=== PATIENT | male | born 1955 | race Caucasian/White ===

== ENCOUNTER → 2016-08-06 | Outpatient (CLI) | payer OTHER, MEDICARE ==
[~2016-08-06] MED LIST: ABIR1TAB; ALBU1AER9 INH; ASPI81TA28 PO; ATOR-26 PO; COEN1CAP7 PO; EZET10TA63 PO; LISI-461 PO; METO1TAB69 PO; PRED-301 PO; ROSU40TA PO; lupron IM
[2016-08-06 12:24] LABS: ESTIMATED AVERAGE GLUCOSE 226 mg/dl; HA1C FLAG Normal (Normal)
== END | disposition home or self-care (01) ==
LOC: C.LAB 17:58
PROVIDERS: ATTEND Internal Medicine Cardiovascular Disease
DX: R73.9 Hyperglycemia, unspecified (principal); C61 Malignant neoplasm of prostate; I10 Essential (primary) hypertension; E78.2 Mixed hyperlipidemia; I21.19 ST elevation (STEMI) myocardial infarction involving other coronary artery of inferior wall

== ENCOUNTER → 2016-09-11 | Outpatient (CLI) | payer OTHER, MEDICARE ==
[2015-09-13 13:55] VITALS: BP 113/71; PULSE 88
[~2016-09-11] MED LIST changes: +METO100T44 PO; -METO1TAB69 PO
[2016-09-11 13:47] VITALS: BP 122/72; PULSE 80; TEMP 36.6; O2SAT 93
--- NOTE | 2016-09-11 15:35 | Radiation Oncology Follow-Up ---
Radiation Oncology Follow-Up Date of Visit September 11, 2016. Reason For Visit 10 month follow-up Radiation Completion Date Implant 10/23/12, External 02/05/13 Diagnosis (1) Prostate cancer Status: Chronic Onset Date: 07/09/2012 Stage: IV Permanent Comment: Rising PSA pretreatment PSA 40 abnormal digital rectal exam Status post biopsies confirming adenocarcinoma [place] 4+3 Clinical stage TIIb, biopsy stage T2c/T3 Suspicious bone scan for metastasis biopsy negative Status post seed implant with cesium 131 on 10/23/2012. 48 seeds placed received 8500 cGy as a boost Status post IMRT/IGRT completed 02/05/2013 received 5040 cGy Ongoing hormonal suppression Lymph node progression on CT of the pelvis abnormal bone scan Abnormal bone scan On going treatment with Zytiga Last Edited By: Bonita Franklin on September 11, 2016 15:35 Interim History He was seen previously for evaluation for possible Xofigo. At that time he did not have 2 or more sites of symptomatic bony metastatic disease. He has been followed closely by Dr. Tate. He is on Zytiga and is having a good response with steady decrease in his PSA. He has not developed any new areas of bone pain. He is doing well from urinary status. His AUA was 7. Completed and expanded prostate cancer index composite for clinical practice and gave a score of 2 of 12 and urinary incontinence symptoms. He is score 1 of 12 urinary irritation symptoms. He gave a score of 0 of 12 in bowel symptoms. He gave a score of 11 of 12 in sexual symptoms. He gave a score of 0 12 and hormonal vitality symptoms. His total was 14 of 60. We reviewed his PSAs. In June 2016 the PSA was 0.48. 08/06/2016 PSA was 0.31. On 09/07/2016 the PSA was 0.020. Allergies Coded Allergies: No Known Allergies (Verified , 03/22/14) Home Medications Scheduled Abiraterone Acetate (Zytiga), 2 TABS DAILY Aspirin (Aspirin Ec), 81 MG PO DAILY Coenzyme Q10 (Ubidecarenone) (Coq10), 250 MG PO DAILY Ezetimibe (Zetia), 10 MG PO DAILY Lisinopril (Lisinopril), 10 MG PO DAILY Metoprolol Succ (Toprol Xl) (Toprol-Xl ), 50 MG PO BID Prednisone (Prednisone), 5 MG PO BID Rosuvastatin Calcium (Crestor), 1 TAB PO DAILY [lupron ], 45 MG IM q 6 months Scheduled PRN Albuterol (Proair Hfa), 1-2 PUFFS INH Q4H PRN Review of Systems Gastrointestinal: Symptoms: WNL Oral: Symptoms: No Problems Respiratory: Symptoms: WNL Urinary: Symptoms: Nocturia Comments: Nocturia x 3-4, Frequency, See AUA & EPIC Skin: Symptoms: No Problems Other Skin Symptoms: Dry skin on bilat forearms Physical Exam Vital Signs Date Time Temp Pulse Resp B/P Pulse Ox O2 Delivery O2 Flow Rate FiO2 09/11/16 13:47 36.6 80 16 122/72 93 Pain: Side: Bilateral Pain Location: None Patient Pain Scale: 0 - 10 Initial Pain Intensity: 0.0 Fatigue: None General Appearance: no apparent distress, + obese Eyes: normal inspection, EOMI ENT: normal ENT inspection, hearing grossly normal Neck: no adenopathy, thyroid normal Respiratory/Chest: lungs clear, no respiratory distress, no accessory muscle use Cardiovascular: regular rate, rhythm, no gallop, no murmur Abdomen: non tender, soft, no organomegaly Extremities: no pedal edema Neurologic/Psychiatric: no motor/sensory deficits, alert, normal mood/affect Skin: warm/dry Lymphatic: no adenopathy Additional Exam Notes: No areas of tenderness to palpation of his back. Laboratory Studies Test 08/06/16 08:54 08/06/16 08:56 09/07/16 07:58 White Blood Count 8.14 K/uL (4.8-10.8) 9.93 K/uL (4.8-10.8) Red Blood Count 4.24 M/uL (4.7-6.1) 4.05 M/uL (4.7-6.1) Hemoglobin 13.4 g/dL (14.0-18.0) 13.2 g/dL (14.0-18.0) Hematocrit 39.2 % (42-52) 39.4 % (42-52) Mean Corpuscular Volume 92.5 fL (80-100) 97.3 fL (80-100) Mean Corpuscular Hemoglobin 31.6 pg (25-34) 32.6 pg (25-34) Mean Corpuscular Hemoglobin Concent 34.2 g/dl (32-36) 33.5 g/dl (32-36) Platelet Count 252 K/uL (130-400) 257 K/uL (130-400) Mean Platelet Volume 9.5 fL (7.4-10.4) 9.1 fL (7.4-10.4) Neutrophils (%) (Auto) 67.8 % 68.4 % Lymphocytes (%) (Auto) 16.5 % 17.3 % Monocytes (%) (Auto) 13.0 % 11.5 % Eosinophils (%) (Auto) 1.8 % 2.0 % Basophils (%) (Auto) 0.4 % 0.4 % Neutrophils # (Auto) 5.52 K/uL (1.4-6.5) 6.79 K/uL (1.4-6.5) Lymphocytes # (Auto) 1.34 K/uL (1.2-3.4) 1.72 K/uL (1.2-3.4) Monocytes # (Auto) 1.06 K/uL (0.11-0.59) 1.14 K/uL (0.11-0.59) Eosinophils # (Auto) 0.15 K/uL (0-0.5) 0.20 K/uL (0-0.5) Basophils # (Auto) 0.03 K/uL (0-0.2) 0.04 K/uL (0-0.2) RDW Standard Deviation 49.2 fL (36.4-46.3) 49.0 fL (36.4-46.3) RDW Coefficient of Variation 14.5 % (11.5-14.5) 13.6 % (11.5-14.5) Immature Granulocyte % (Auto) 0.5 % 0.4 % Immature Granulocyte # (Auto) 0.04 K/uL (0.00-0.02) 0.04 K/uL (0.00-0.02) Sodium Level 139 mmol/L (136-145) 137 mmol/L (136-145) Potassium Level 4.1 mmol/L (3.5-5.1) 4.2 mmol/L (3.5-5.1) Chloride Level 105 mmol/L (98-107) 103 mmol/L (98-107) Carbon Dioxide Level 26 mmol/L (21-32) 25 mmol/L (21-32) Anion Gap 8.0 mmol/L (3-11) 9.0 mmol/L (3-11) Blood Urea Nitrogen 12 mg/dl (7-18) 16 mg/dl (7-18) Creatinine 0.67 mg/dl (0.60-1.40) 0.67 mg/dl (0.60-1.40) Est Creatinine Clear Calc Drug Dose 148.7 ml/min 148.7 ml/min Estimated GFR () 119.4 119.4 Estimated GFR (Non- 103.0 103.0 BUN/Creatinine Ratio 17.6 (10-20) 24.5 (10-20) Random Glucose 121 mg/dl (70-99) 130 mg/dl (70-99) Calcium Level 8.9 mg/dl (8.5-10.1) 9.1 mg/dl (8.5-10.1) Total Bilirubin 1.3 mg/dl (0.2-1) 1.3 mg/dl (0.2-1) Aspartate Amino Transferase (AST) 40 U/L (15-37) 40 U/L (15-37) Alanine Aminotransferase (ALT) 69 U/L (12-78) 64 U/L (12-78) Alkaline Phosphatase 90 U/L (45-117) 96 U/L (45-117) Lactate Dehydrogenase 287 U/L (87-241) 239 U/L (87-241) Total Protein 7.0 gm/dl (6.4-8.2) 6.8 gm/dl (6.4-8.2) Albumin 3.4 gm/dl (3.4-5.0) 3.3 gm/dl (3.4-5.0) Globulin 3.6 gm/dl (2.5-4.0) 3.5 gm/dl (2.5-4.0) Albumin/Globulin Ratio 0.9 (0.9-2) 0.9 (0.9-2) Prostate Specific Antigen 0.031 ng/ml (0.000-4.000) 0.020 ng/ml (0.000-4.000) Estimated Average Glucose 226 mg/dl Hemoglobin A1c 9.5 % (4.5-5.6) Additional Studies PSAs as reviewed above. Assessment & Plan Plan: Continue regular follow-up with oncology. He continues on Zytiga. He is on hormonal suppression. We asked him to return to our office in 1 year. He may be referred back to our office should he develop any areas of bone pain. He can call our office should he has any questions or concerns in the interim. Total Time In Follow-Up I spent 20 minutes speaking to the patient performing examination. I spent 15 minutes reviewing information and completing this note. Copy To Praful Taylor MD; Lc Tate, D.O.; Jelani Fuchs MD, Urology
== END | disposition home or self-care (01) ==
LOC: C.ONC 13:43
PROVIDERS: ATTEND Physician Assistant Medical
DX: Z08 Encounter for follow-up examination after completed treatment for malignant neoplasm (principal); Z92.3 Personal history of irradiation; Z85.46 Personal history of malignant neoplasm of prostate

== ENCOUNTER → 2016-12-07 | Outpatient (CLI) | payer OTHER, MEDICARE ==
[~2016-12-07] MED LIST changes: -ATOR-26 PO; -METO100T44 PO; +METO1TAB69 PO
[2016-12-07 08:48] LABS: ESTIMATED AVERAGE GLUCOSE 194 mg/dl; HA1C FLAG Normal (Normal)
== END | disposition home or self-care (01) ==
LOC: C.LAB 11:12
PROVIDERS: ATTEND Family Medicine
DX: E11.9 Type 2 diabetes mellitus without complications (principal); C61 Malignant neoplasm of prostate; I10 Essential (primary) hypertension; E78.2 Mixed hyperlipidemia; I21.19 ST elevation (STEMI) myocardial infarction involving other coronary artery of inferior wall

== ENCOUNTER → 2017-01-24 | Outpatient (CLI) | payer OTHER, MEDICARE ==
[2017-01-24 09:53] LABS: ESTIMATED AVERAGE GLUCOSE 186 mg/dl; HA1C FLAG Normal (Normal)
== END | disposition home or self-care (01) ==
LOC: C.LAB 12:51
PROVIDERS: ATTEND Family Medicine
DX: E11.9 Type 2 diabetes mellitus without complications (principal); C61 Malignant neoplasm of prostate; I10 Essential (primary) hypertension; E78.2 Mixed hyperlipidemia; I21.19 ST elevation (STEMI) myocardial infarction involving other coronary artery of inferior wall

== ENCOUNTER → 2017-03-18 | Outpatient (CLI) | payer OTHER, MEDICARE ==
[~2017-03-18] MED LIST changes: +METO100T44 PO; -METO1TAB69 PO; +OPTIRAY 320 IV PRN
--- NOTE | 2017-03-18 08:30 | DIAGNOSTIC IMAGING REPORT ---
ABD/PELVIS IV CONTRAST ONLY CLINICAL HISTORY: 61 years-old Male presenting with R35.0 prostate cancer follow-up. TECHNIQUE: Multidetector CT of the abdomen and pelvis was performed after the administration of intravenous contrast. IV contrast: 93 mL of Optiray 320. A dose lowering technique was used consistent with the principles of ALARA (as low as reasonably achievable). COMPARISON: 11/07/2015. CT DOSE (mGy.cm): The estimated cumulative dose is 1035.98 mGycm. 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 Lung bases: Minimal dependent subpleural reticulation and groundglass opacity at the left lower lobe, nonspecific possibly postinfectious or postinflammatory versus atelectasis. Top normal heart size. Coronary artery and aortic valve calcification. No pericardial or pleural effusion. Liver: Congenital hypoplasia of the medial segments of the left hepatic lobe. Hepatic steatosis suggested. No focal lesion. Patent hepatic vasculature. Biliary: No intrahepatic or extrahepatic biliary ductal dilatation. Normal gallbladder. Pancreas: Mild parenchymal atrophy. Spleen: Normal. Adrenal glands: Normal. Kidneys and ureters: Few punctate nonobstructing calculi suggested at the lower pole the left kidney. No hydronephrosis. Normal excretion bilaterally. Normal ureters. Bladder: Incompletely evaluated secondary to underdistention. Pelvic organs: Brachytherapy seeds noted in the diminutive prostate gland. Evaluation of the pelvis is mildly degraded secondary to streak artifact arising from the total right hip prosthesis. Bowel: Normal appendix. No bowel obstruction. Peritoneal cavity: No free fluid or intraperitoneal gas. Lymph nodes: Significant interval decrease in retroperitoneal lymphadenopathy. The previously noted pathologically enlarged lymph nodes have decreased to the level where it is difficult to directly correlate with prior lymph nodes for direct measurement. The largest lymph node in the retroperitoneum in the aortocaval region now measures 3 to 4 mm (series 3 image 210). A lymph node in this general region on the prior exam measured 20 mm in the short axis for comparison. No new sites of lymphadenopathy. Multiple prominent subcentimeter lymph node in the left external iliac region measuring 8 mm in short axis is unchanged from prior (series 3 image 385), nonspecific and possibly reactive. Vasculature: Atherosclerosis of the normal caliber abdominal aorta. IVC patent. Abdominal wall: Small fat-containing umbilical hernia. Fat-containing left inguinal hernia. Musculoskeletal: Total right hip arthroplasty without apparent complication. Mild heterotopic ossification in the region of the right hip, which is nonbridging. No destructive osseous lesion. Degenerative changes of the spine and sacroiliac joints. 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 IMPRESSION: 1. Essential resolution of retroperitoneal lymphadenopathy. No new sites of lymphadenopathy or metastatic disease in abdomen or pelvis. 2. Post radiation changes of the prostate. 3. Hepatic steatosis suggested. Electronically signed by: Cory Perez M.D. 03/18/2017 8:29 AM Dictated Date/Time: 03/18/2017 8:18 AM
--- NOTE | 2017-03-18 11:29 | DIAGNOSTIC IMAGING REPORT ---
BONE SCAN WHOLE BODY HISTORY: 61 years-old Male R35.0 follow-up study in a patient with prostate cancer COMPARISON: CT abdomen and pelvis 03/18/2017 TECHNIQUE: Anterior and posterior whole-body planar scintigraphic images from a bone scan were obtained utilizing 25.1 mCi technetium 99 MDP. FINDINGS: Areas of photopenia are present within the right femoral neck and about the left knee compatible with joint arthroplasties. Areas of increased radiotracer uptake about the left knee arthroplasty suggests remodeling changes. Scattered areas of mild radiotracer uptake are noted about the shoulders, thoracic lumbar spine, right knee, right hindfoot and left mid foot suggesting degenerative changes which appears similar from comparison study. Focal area of moderate tracer uptake within the region of the right forefoot also appears unchanged suggesting degenerative changes. Physeal greater tracer uptake is noted about the soft tissues, kidneys and renal collecting system. No suspicious foci seen to suggest metastatic disease. IMPRESSION: 1. No suspicious foci identified to suggest metastatic disease. 2. Scattered areas of mild radiotracer uptake about the spine and appendicular skeletal system suggest degenerative changes. 3. Physiologic radiotracer uptake noted about the left knee and right hip arthroplasties. The above report was generated using voice recognition software. It may contain grammatical, syntax or spelling errors. Electronically signed by: Jamison Bowser M.D. 03/18/2017 11:28 AM Dictated Date/Time: 03/18/2017 11:14 AM
== END | disposition home or self-care (01) ==
LOC: C.NUCL 07:37
PROVIDERS: ATTEND Urology
DX: R35.0 Frequency of micturition (principal)

== ENCOUNTER → 2017-03-20 | Outpatient (CLI) | payer OTHER, MEDICARE ==
[~2017-03-20] MED LIST changes: -OPTIRAY 320 IV PRN
[2017-03-20 10:07] LABS: BLOOD UREA NITROGEN 14 mg/dl (7-18); BUN/CREATININE RATIO 17.9 (10-20); CREATININE 0.79 mg/dl (0.60-1.40)
== END | disposition home or self-care (01) ==
LOC: C.LAB 07:36
PROVIDERS: ATTEND Urology
DX: C61 Malignant neoplasm of prostate (principal)

== ENCOUNTER → 2017-06-11 | Outpatient (CLI) | payer OTHER, MEDICARE ==
[2017-06-11 08:45] LABS: HEMOGLOBIN A1C 8.7 % (4.5-5.6)
== END | disposition home or self-care (01) ==
LOC: C.LAB 15:39
PROVIDERS: ATTEND Family Medicine
DX: E11.9 Type 2 diabetes mellitus without complications (principal); E78.2 Mixed hyperlipidemia; I10 Essential (primary) hypertension

== ENCOUNTER → 2017-09-13 | Outpatient (CLI) | payer OTHER, MEDICARE ==
[2017-09-13 09:01] VITALS: BP 98/58; PULSE 83; TEMP 36.7; O2SAT 96
--- NOTE | 2017-09-13 09:56 | Radiation Oncology Follow-Up ---
Radiation Oncology Follow-Up Date of Visit September 13, 2017. Reason For Visit Annual follow-up Radiation Completion Date implant on 10-23-2012 and external 02-05-2013 Diagnosis (1) Prostate cancer Status: Chronic Onset Date: 07/09/2012 Stage: IV Permanent Comment: Rising PSA pretreatment PSA 40 abnormal digital rectal exam Status post biopsies confirming adenocarcinoma [place] 4+3 Clinical stage TIIb, biopsy stage T2c/T3 Suspicious bone scan for metastasis biopsy negative Status post seed implant with cesium 131 on 10/23/2012. 48 seeds placed received 8500 cGy as a boost Status post IMRT/IGRT completed 02/05/2013 received 5040 cGy Ongoing hormonal suppression Lymph node progression on CT of the pelvis abnormal bone scan Abnormal bone scan On going treatment with Zytiga and prednisone Last Edited By: Bonita Franklin on September 13, 2017 09:46 Interim History He has been doing well over this past year from urinary standpoint. Today gave an AUA score of 10. He does not require any medications to help with urination. He feels his urinary status is stable. He continues on the androgen deprivation through Dr. Fuchs's office. He is also followed in medical oncology. He completed and expanded prostate cancer index composite for clinical practice and gave a score of 2 of 12 and urinary incontinence symptoms. He gave a score of 2 of 12 and urinary irritation symptoms. He gave a score of 0 of 12 and bowel symptoms. He gave a score of 12 of 12 in sexual symptoms. He gives score of 1 of 12 and hormonal vitality symptoms. His total was 17 of 60. His AUA score is continued to be less than 0.01. The last evaluation was on August 13, 2017. He denies difficulties with tolerance of the androgen deprivation. He continues on Zytiga and prednisone through medical oncology. Allergies Coded Allergies: No Known Allergies (Verified , 03/22/14) Home Medications Scheduled Abiraterone Acetate (Zytiga), 2 TABS DAILY Aspirin (Aspirin Ec), 81 MG PO DAILY Ezetimibe (Zetia), 10 MG PO DAILY Lisinopril (Lisinopril), 10 MG PO DAILY Metoprolol Succ (Toprol Xl) (Toprol-Xl ), 50 MG PO BID Prednisone (Prednisone), 5 MG PO BID Rosuvastatin Calcium (Crestor), 1 TAB PO DAILY [lupron ], 45 MG IM q 6 months Scheduled PRN Albuterol (Proair Hfa), 1-2 PUFFS INH Q4H PRN Review of Systems Gastrointestinal: Symptoms: WNL Oral: Symptoms: No Problems Respiratory: Symptoms: WNL Urinary: Symptoms: Nocturia Comments: nocturia times 4 - 5 Skin: Symptoms: No Problems Other Skin Symptoms: Dry skin on bilat forearms Physical Exam Vital Signs Date Time Temp Pulse Resp B/P (MAP) Pulse Ox O2 Delivery O2 Flow Rate FiO2 09/13/17 09:01 36.7 83 20 98/58 96 Fatigue: None General Appearance: no apparent distress Eyes: normal inspection, EOMI ENT: normal ENT inspection, hearing grossly normal Respiratory/Chest: lungs clear, no respiratory distress, no accessory muscle use Cardiovascular: regular rate, rhythm, no gallop, no murmur Abdomen: non tender, soft, no organomegaly Anal / Rectum: Normal sphincter tone. Prostate consistent with a seed implant. No rectal masses and no rectal bleeding. Extremities: no pedal edema Neurologic/Psychiatric: no motor/sensory deficits, alert, normal mood/affect Skin: warm/dry Pain Management Patient Reports Pain: No Side: Bilateral Patient Preferred Pain Scale: 0 - 10 Initial Pain Intensity: 0.0 Pain Management Plan He denies pain therefore requires no pain management. Laboratory Laboratory Results: were reviewed Laboratory Comments: Discussed in the interim history. Pathology Pathology Results: not applicable Imaging Imaging Studies: were reviewed, and pertinent findings noted below Imaging Comments ABD/PELVIS IV CONTRAST ONLY CLINICAL HISTORY: 61 years-old Male presenting with R35.0 prostate cancer follow-up. TECHNIQUE: Multidetector CT of the abdomen and pelvis was performed after the administration of intravenous contrast. IV contrast: 93 mL of Optiray 320. A dose lowering technique was used consistent with the principles of ALARA (as low as reasonably achievable). COMPARISON: 11/07/2015. CT DOSE (mGy.cm): The estimated cumulative dose is 1035.98 mGycm. 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 Lung bases: Minimal dependent subpleural reticulation and groundglass opacity at the left lower lobe, nonspecific possibly postinfectious or postinflammatory versus atelectasis. Top normal heart size. Coronary artery and aortic valve calcification. No pericardial or pleural effusion. Liver: Congenital hypoplasia of the medial segments of the left hepatic lobe. Hepatic steatosis suggested. No focal lesion. Patent hepatic vasculature. Biliary: No intrahepatic or extrahepatic biliary ductal dilatation. Normal gallbladder. Pancreas: Mild parenchymal atrophy. Spleen: Normal. Adrenal glands: Normal. Kidneys and ureters: Few punctate nonobstructing calculi suggested at the lower pole the left kidney. No hydronephrosis. Normal excretion bilaterally. Normal ureters. Bladder: Incompletely evaluated secondary to underdistention. Pelvic organs: Brachytherapy seeds noted in the diminutive prostate gland. Evaluation of the pelvis is mildly degraded secondary to streak artifact arising from the total right hip prosthesis. Bowel: Normal appendix. No bowel obstruction. Peritoneal cavity: No free fluid or intraperitoneal gas. Lymph nodes: Significant interval decrease in retroperitoneal lymphadenopathy. The previously noted pathologically enlarged lymph nodes have decreased to the level where it is difficult to directly correlate with prior lymph nodes for direct measurement. The largest lymph node in the retroperitoneum in the aortocaval region now measures 3 to 4 mm (series 3 image 210). A lymph node in this general region on the prior exam measured 20 mm in the short axis for comparison. No new sites of lymphadenopathy. Multiple prominent subcentimeter lymph node in the left external iliac region measuring 8 mm in short axis is unchanged from prior (series 3 image 385), nonspecific and possibly reactive. Vasculature: Atherosclerosis of the normal caliber abdominal aorta. IVC patent. Abdominal wall: Small fat-containing umbilical hernia. Fat-containing left inguinal hernia. Musculoskeletal: Total right hip arthroplasty without apparent complication. Mild heterotopic ossification in the region of the right hip, which is nonbridging. No destructive osseous lesion. Degenerative changes of the spine and sacroiliac joints. 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 IMPRESSION: 1. Essential resolution of retroperitoneal lymphadenopathy. No new sites of lymphadenopathy or metastatic disease in abdomen or pelvis. 2. Post radiation changes of the prostate. 3. Hepatic steatosis suggested. Electronically signed by: Cory Peerz M.D. 03/18/2017 8:29 AM Dictated Date/Time: 03/18/2017 8:18 AM BONE SCAN WHOLE BODY HISTORY: 61 years-old Male R35.0 follow-up study in a patient with prostate cancer COMPARISON: CT abdomen and pelvis 03/18/2017 TECHNIQUE: Anterior and posterior whole-body planar scintigraphic images from a bone scan were obtained utilizing 25.1 mCi technetium 99 MDP. FINDINGS: Areas of photopenia are present within the right femoral neck and about the left knee compatible with joint arthroplasties. Areas of increased radiotracer uptake about the left knee arthroplasty suggests remodeling changes. Scattered areas of mild radiotracer uptake are noted about the shoulders, thoracic lumbar spine, right knee, right hindfoot and left mid foot suggesting degenerative changes which appears similar from comparison study. Focal area of moderate tracer uptake within the region of the right forefoot also appears unchanged suggesting degenerative changes. Physeal greater tracer uptake is noted about the soft tissues, kidneys and renal collecting system. No suspicious foci seen to suggest metastatic disease. IMPRESSION: 1. No suspicious foci identified to suggest metastatic disease. 2. Scattered areas of mild radiotracer uptake about the spine and appendicular skeletal system suggest degenerative changes. 3. Physiologic radiotracer uptake noted about the left knee and right hip arthroplasties. The above report was generated using voice recognition software. It may contain grammatical, syntax or spelling errors. Electronically signed by: Jamison Bowser M.D. 03/18/2017 11:28 AM Dictated Date/Time: 03/18/2017 11:14 AM Assessment & Plan Plan: He will continue regular follow-up with his primary care physician, urology, and medical oncology. He is scheduled for his next Lupron injection. He continues on the Zytiga and prednisone. We discussed that he has had an excellent response to treatment. The CAT scans of the chest abdomen and pelvis were reviewed. We discussed his PSA levels. A follow-up appointment with our office was not given. He may call if he has any questions or concerns we be happy to see him. He previously was seen discuss Xofigo therapy. He continues to have a response to the androgen deprivation and therefore is not a candidate for Xofigo therapy. He may be referred back to our office should he develop any new or painful areas of bone metastasis. He may be referred back if he becomes hormone resistant and shows signs of progression on bone scan. Total Time In Follow-Up I spent 20 minutes speaking to the patient in performing examination. I spent 20 minutes reviewing information and completing this note. Copy To Praful Taylor MD; Lc Tate, Anita.O.; Jelani Fuchs MD, Urology
== END | disposition home or self-care (01) ==
LOC: C.ONC 08:51
PROVIDERS: ATTEND Physician Assistant Medical
DX: Z08 Encounter for follow-up examination after completed treatment for malignant neoplasm (principal); Z92.3 Personal history of irradiation; Z85.46 Personal history of malignant neoplasm of prostate

== ENCOUNTER 2021-03-13 10:48 | Inpatient (IN) ==
[2021-03-13] MEDS ORDERED: SODIUM CHLORIDE 0.9% 1000ML 1,000 ML IV SCH (11:45)
--- NOTE | 2021-03-13 11:47 | Emergency Department Note ---
Impression & Plan Sepsis ADMISSION ED Provider Note HPI: The patient is a 65-year-old gentleman with history of CAD, T2DM, prostate cancer, obesity, presents the emergency department with a chief complaint of generalized weakness, fever, nausea and diminished appetite, has been ongoing f or about the past 2 to 3 days. Patient states he also seems to be more lightheaded with positional changes when he gets out of bed and when he gets up out of chairs recently. Patient appears well on arrival however he is noted to be tachycardic in the 130s on my initial evaluation, he is saturating well on room air, he is not hypotensive. He is noted to have a fever of 39 C. He is otherwise in no acute distress on my initial evaluation. ROS: - General: Fever, generalized weakness - GI: Nausea, diminished appetite, generalized weakness *10 point review systems was conducted and is otherwise negative unless stated above *Outpatient medications and allergy history reviewed PE: General: Alert, NAD HEENT: Normocephalic, atraumatic, trachea midline, left tympanic membrane is clear without bulging or purulence, right tympanic membrane without any drainage, no erythema Eyes: Extraocular eye movement is intact, no scleral erythema Pulmonary: Clear to auscultation bilaterally, no wheezing Cardio: Tachycardic rate with regular rhythm GI: Abdomen is soft, nontender : No suprapubic tenderness MSK: No evidence of trauma or malformation of the extremities, no edema Skin: No evidence of rash Neuro: Alert, no focal deficits, no ataxia on [id number] testing 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 Patient was IV fluid resuscitated here in the ED with 2.5 L of normal saline, his tachycardia down trended, his blood pressure remained stable therefore he was not given any further fluid over concern for fluid overload, in addition his lactic acid is within normal limits. Blood cultures were drawn in the ED, chest x-ray does not show any evidence of pneumonia, urinalysis does not show any convincing evidence of infection, COVID- 19 testing was obtained and is negative. CT imaging of the head was obtained and shows some bilateral mastoid effusions, patient tells me he did have a right-sided mastoid procedure about 10 years ago but he is unsure of exactly what it was for, tells me he thinks it was for "cyst". He states he had this done at [facility]. He has not had any acute issues or acute pain in the area of the bilateral mastoids recently. He denies any headaches. He does not have any findings of obvious infection on examination of the bilateral auditory canals/tympanic membranes. No active drainage. On my reassessment the patient's tells me that he did experience a tick bite about a week ago when he was at [place], she states that she removed the tick when he returned home 6 days ago. He has a small surrounding rash to the mid abdomen area where the tick was removed, therefore we will send Lyme testing and anaplasmosis testing as a possible source of his fever. Patient's fever down treated here in the ED with p.o. Tylenol, his tachycardia also down trended to the low 100s with IV fluids from the 140s. He denies any chest pain and otherwise appears well. Given the patient's comorbidities, tachycardia, and presenting fever, I do have concern for developing sepsis, despite his clinical improvement I do think he would benefit from admission to the hospital, broad-spectrum IV antibiotics, and follow-up on blood cultures. Patient was started on vancomycin and cefepime, case was discussed with the on-call admitting hospitalist Dr. Zapata, and the patient was admitted in stable condition for further care. * Diagnosis: Sepsis with unknown origin * Disposition: Admission * CRITICAL CARE TIME: 45 minutes -Management of sepsis with significant tachycardia requiring aggressive IV fluid resuscitation for stabilization as well as administration of broad-spectrum antibiotics, time spent at the bedside, interpretation of diagnostic studies, discussion with other physicians Advised outpatient follow up: - Return to the ED with any new or worsening symptoms - PCP in 2-3 Days Chacorta Mahoney DO Emergency Medicine Past Med/Surg History Medical History (Updated 03/13/21 @ 17:44 by Chacorta Mahoney DO) Diabetes mellitus type 2, uncontrolled DJD (degenerative joint disease) of hip (03/30/14) Myocardial infarction 1998 - [facility], s/p stent; follows w/ Dr Munir Fragin Prostate cancer (07/09/12) "Rising PSA pretreatment PSA 40 abnormal digital rectal exam Status post biopsies confirming adenocarcinoma [place] 4+3 Clinical stage TIIb, biopsy stage T2c/T3 Suspicious bone scan for metastasis biopsy negative Status post seed implant with cesium 131 on 10/23/2012. 48 seeds placed received 8500 cGy as a boost Status post IMRT/IGRT completed 02/05/2013 received 5040 cGy Ongoing hormonal suppression Lymph node progression on CT of the pelvis abnormal bone scan Abnormal bone scan On going treatment with Zytiga and prednisone" On 09/11/16 15:35 Bonita Franklin wrote "Rising PSA pretreatment PSA 40 abnormal digital rectal exam Status post biopsies confirming adenocarcinoma [place] 4+3 Clinical stage TIIb, biopsy stage T2c/T3 Suspicious bone scan for metastasis biopsy negative Status post seed implant with cesium 131 on 10/23/2012. 48 seeds placed received 8500 cGy as a boost Status post IMRT/IGRT completed 02/05/2013 received 5040 cGy Ongoing hormonal suppression Lymph node progression on CT of the pelvis abnormal bone scan Abnormal bone scan On going treatment with Zytiga" On 11/23/15 16:31 Bonita Franklin wrote "Rising PSA pretreatment PSA 40 abnormal digital rectal exam Status post biopsies confirming adenocarcinoma [place] 4+3 Clinical stage TIIb, biopsy stage T2c/T3 Suspicious bone scan for metastasis biopsy negative Status post seed implant with cesium 131 on 10/23/2012. 48 seeds placed rec eived 8500 cGy as a boost Status post IMRT/IGRT completed 02/05/2013 received 5040 cGy Ongoing hormonal suppression Lymph node progression on CT of the pelvis abnormal bone scan Abnormal bone scan" On 09/15/14 15:06 Bonita Franklin wrote "Rising PSA pretreatment PSA 40 abnormal digital rectal exam Status post biopsies confirming adenocarcinoma [place] 4+3 Clinical stage TIIb, biopsy stage T2c/T3 Suspicious bone scan for metastasis biopsy negative Status post seed implant with cesium 131 on 10/23/2012. 48 seeds placed received 8500 cGy as a boost Status post IMRT/IGRT completed 02/05/2013 received 5040 cGy Ongoing hormonal suppression" Surgical History (Updated 03/13/21 @ 16:05 by Juan Pablo Donaldson) H/O wrist surgery b/l - ganglions? 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 Beliefs That Will Affect Care: None marital status: Current Living Situation: Spouse Current Living Situation Comment: lives in [facility] with current occupational status: retired current occupation: worked for the [employer] ([employer] How many Children do You have: 2 Feels Safe at Home: Yes Safety Concerns: Feels Safe At This Time Assistive Devices: Denture - Upper, Glasses, Hearing Aid - Left and Hearing Aid - Right Assistive Devices Comment: glasses here, others at home, will bring later Allergies Allergies Allergy/AdvReac Type Severity Reaction Status Date / Time No Known Allergies Allergy Verified 03/13/21 11:28 Home Meds Home Medications Medication Instructions Recorded Confirmed albuterol sulfate 90 mcg/actuation 1 - 2 puff INHALATION Q4 PRN 01/29/19 03/13/21 aerosol inhaler (ProAir HFA) ezetimibe 10 mg tablet (Zetia) 10 mg PO HS 01/29/19 03/13/21 lisinopril 10 mg tablet 10 mg PO QAM 01/29/19 03/13/21 metoprolol succinate 50 mg 50 mg PO BID 01/29/19 03/13/21 tablet,extended release 24 hr prednisone 5 mg tablet 5 mg PO BID 01/29/19 03/13/21 abiraterone 250 mg tablet (Zytiga) 250 mg PO BID 10/03/19 03/13/21 metformin 1,000 mg tablet 1,000 mg PO BIDM 10/03/19 03/13/21 aspirin 81 mg tablet,delayed 81 mg PO DAILY 03/13/21 03/13/21 release linagliptin 5 mg tablet (Tradjenta) 5 mg PO QAM 03/13/21 03/13/21 Previous Rx's Medication Instructions Recorded leuprolide (6 month) 45 mg 45 mg IM .[id number] #1 ea 02/23/19 intramuscular syringe kit (Lupron Depot) Results & Data (ED) Vital Signs Vital Signs - 24 hr 03/13/21 10:56 03/13/21 11:00 03/13/21 11:08 Temperature 39.0 C H Temperature Source Oral Pulse Rate 144 H 145 H 145 H Pulse Rate [Left Apical] Pulse Rate from SpO2 Sensor 142 H 161 H Pulse Rhythm Regular Respiratory Rate 11 L 18 18 Respiratory Effort / Characteristics Non-Labored Respiratory Depth Normal Respiratory Pattern Blood Pressure 145/89 H Blood Pressure [Right Arm] Blood Pressure Mean 107 Blood Pressure Mean [Right Arm] Pulse Oximetry 96 94 93 Oxygen Delivery Method Room Air Sepsis Recent Fever Within 48 Hours Yes Sepsis New/Unexplained Change in Mental Status No Sepsis Action Taken by Nursing No Action Required 03/13/21 11:30 03/13/21 11:42 03/13/21 12:00 Temperature 38.4 C H Temperature Source Oral Pulse Rate 141 H 136 H Pulse Rate [Left Apical] Pulse Rate from SpO2 Sensor 141 H 135 H Pulse Rhythm Respiratory Rate 25 H 18 23 Respiratory Effort / Characteristics Non-Labored Respiratory Depth Respiratory Pattern Blood Pressure Blood Pressure [Right Arm] Blood Pressure Mean Blood Pressure Mean [Right Arm] Pulse Oximetry 93 93 95 Oxygen Delivery Method Room Air Sepsis Recent Fever Within 48 Hours Sepsis New/Unexplained Change in Mental Status Sepsis Action Taken by Nursing 03/13/21 12:30 03/13/21 12:49 03/13/21 13:00 Temperature 39.0 C H Temperature Source Oral Pulse Rate 127 H 129 H Pulse Rate [Left Apical] Pulse Rate from SpO2 Sensor 127 H 129 H Pulse Rhythm Respiratory Rate 34 H 28 H Respiratory Effort / Characteristics Respiratory Depth Respiratory Pattern Blood Pressure 145/89 H Blood Pressure [Right Arm] Blood Pressure Mean 107 Blood Pressure Mean [Right Arm] Pulse Oximetry 95 94 Oxygen Delivery Method Sepsis Recent Fever Within 48 Hours Sepsis New/Unexplained Change in Mental Status Sepsis Action Taken by Nursing 03/13/21 13:42 03/13/21 13:44 03/13/21 14:00 Temperature 37.8 C H Temperature Source Oral Pulse Rate 118 H Pulse Rate [Left Apical] Pulse Rate from SpO2 Sensor 123 H 118 H Pulse Rhythm Respiratory Rate 28 H Respiratory Effort / Characteristics Respiratory Depth Respiratory Pattern Blood Pressure 124/65 Blood Pressure [Right Arm] Blood Pressure Mean 84 Blood Pressure Mean [Right Arm] Pulse Oximetry 93 92 Oxygen Delivery Method Sepsis Recent Fever Within 48 Hours Sepsis New/Unexplained Change in Mental Status Sepsis Action Taken by Nursing 03/13/21 14:30 03/13/21 15:00 03/13/21 15:30 Temperature Temperature Source Pulse Rate 126 H 106 H 112 H Pulse Rate [Left Apical] Pulse Rate from SpO2 Sensor 107 H Pulse Rhythm Respiratory Rate 27 H 15 25 H Respiratory Effort / Characteristics Respiratory Depth Respiratory Pattern Blood Pressure 144/68 H Blood Pressure [Right Arm] Blood Pressure Mean 93 Blood Pressure Mean [Right Arm] Pulse Oximetry 95 Oxygen Delivery Method Sepsis Recent Fever Within 48 Hours Sepsis New/Unexplained Change in Mental Status Sepsis Action Taken by Nursing 03/13/21 16:00 03/13/21 16:30 03/13/21 16:34 Temperature 36.8 C Temperature Source Oral Pulse Rate 109 H 112 H Pulse Rate [Left Apical] 112 H Pulse Rate from SpO2 Sensor 110 H 112 H Pulse Rhythm Respiratory Rate 24 25 H 22 Respiratory Effort / Characteristics Non-Labored Respiratory Depth Normal Respiratory Pattern Regular Blood Pressure 139/71 127/84 Blood Pressure [Right Arm] 139/71 Blood Pressure Mean 93 98 Blood Pressure Mean [Right Arm] 93 Pulse Oximetry 95 97 95 Oxygen Delivery Method Room Air Sepsis Recent Fever Within 48 Hours Sepsis New/Unexplained Change in Mental Status Sepsis Action Taken by Nursing 03/13/21 17:00 Temperature Temperature Source Pulse Rate 108 H Pulse Rate [Left Apical] Pulse Rate from SpO2 Sensor 110 H Pulse Rhythm Respiratory Rate 23 Respiratory Effort / Characteristics Respiratory Depth Respiratory Pattern Blood Pressure Blood Pressure [Right Arm] Blood Pressure Mean Blood Pressure Mean [Right Arm] Pulse Oximetry 97 Oxygen Delivery Method Sepsis Recent Fever Within 48 Hours Sepsis New/Unexplained Change in Mental Status Sepsis Action Taken by Nursing Laboratory Data Result diagrams: 03/13/21 11:08 03/13/21 11:08 Lab Results 03/13/21 03/13/21 03/13/21 Range/Units 11:08 11:08 11:08 WBC 5.98 (4.8-10.8) K/uL RBC 4.55 L (4.7-6.1) M/uL Hgb 14.1 (14.0-18.0) g/dL Hct 41.5 L (42-52) % MCV 91.2 (80-100) fL MCH 31.0 (25-34) pg MCHC 34.0 (32-36) g/dL RDW Std Deviation 43.2 (36.4-46.3) fL RDW Coeff of Cisco 12.9 (11.5-14.5) % Plt Count 128 L (130-400) K/uL MPV 9.7 (7.4-10.4) fL Immature Gran % (Auto) 0.3 % Neut % (Auto) 86.4 % Lymph % (Auto) 8.4 % [place] % (Auto) 4.7 % Eos % (Auto) 0.0 % Baso % (Auto) 0.2 % Neut # (Auto) 5.17 (1.4-6.5) K/uL Lymph # (Auto) 0.50 L (1.2-3.4) K/uL [place] # (Auto) 0.28 (0.11-0.59) K/uL Eos # (Auto) 0.00 (0-0.5) K/uL Baso # (Auto) 0.01 (0-0.2) K/uL Immature Gran # (Auto) 0.02 (0.00-0.02) K/uL PT Cancelled INR Cancelled APTT Cancelled PTT Ratio Cancelled Sodium 126 L (136-145) mmol/L Potassium 3.5 (3.5-5.1) mmol/L Chloride 94 L (98-107) mmol/L Carbon Dioxide 21 (21-32) mmol/L Anion Gap 12.0 H (3-11) BUN 10 (7-18) mg/dl Creatinine 0.89 (0.6-1.4) mg/dl Est Cr Clr Drug Dosing 103.2 ml/min Est GFR ( Amer) 103.3 ml/min Est GFR (Non-Af Amer) 89.1 ml/min BUN/Creatinine Ratio 11.7 (10-20) Glucose 228 H (70-99) mg/dl Lactate (0.4-2.0) mmol/L Calcium 9.6 (8.5-10.1) mg/dl Magnesium 1.8 (1.8-2.4) mg/dl Total Bilirubin 1.5 H (0.2-1) mg/dl AST 71 H (15-37) U/L ALT 56 (12-78) U/L Alkaline Phosphatase 78 (45-117) U/L Troponin I < 0.015 (0-0.045) ng/ml Total Protein 7.8 (6.4-8.2) gm/dl Albumin 3.2 L (3.4-5.0) gm/dl Globulin 4.6 H (2.5-4.0) gm/dl Albumin/Globulin Ratio 0.7 L (0.9-2) Procalcitonin (0-0.5) ng/ml Urine Color Urine Appearance (Clear) Urine pH (4.5-7.5) Ur Specific [place] (1.000-1.030) Urine Protein (Negative) Urine Glucose (UA) (Negative) Urine Ketones (Negative) Urine Blood (Negative) Urine Nitrite (Negative) Urine Bilirubin (Negative) Urine Urobilinogen (Negative) Ur Leukocyte Esterase (Negative) Urine WBC (Auto) (0-5) /hpf Urine RBC (Auto) (0-4) /hpf U Hyaline Cast (Auto) (0-5) /lpf U Epithel Cells (Auto) (0-5) /lpf Urine Bacteria (Auto) (Negative) Granular Casts (0) /lpf Urine Mucus (None Prsent) Anaplasma Smear Babesia Smear Lyme Disease IgG Ab (Negative) Lyme Disease IgM Ab (Negative) COVID-19 Eval Order SARS-CoV-2 (PCR) (Negative) 03/13/21 03/13/21 03/13/21 Range/Units 11:08 11:08 11:08 WBC (4.8-10.8) K/uL RBC (4.7-6.1) M/uL Hgb (14.0-18.0) g/dL Hct (42-52) % MCV (80-100) fL MCH (25-34) pg MCHC (32-36) g/dL RDW Std Deviation (36.4-46.3) fL RDW Coeff of Cisco (11.5-14.5) % Plt Count (130-400) K/uL MPV (7.4-10.4) fL Immature Gran % (Auto) % Neut % (Auto) % Lymph % (Auto) % [place] % (Auto) % Eos % (Auto) % Baso % (Auto) % Neut # (Auto) (1.4-6.5) K/uL Lymph # (Auto) (1.2-3.4) K/uL [place] # (Auto) (0.11-0.59) K/uL Eos # (Auto) (0-0.5) K/uL Baso # (Auto) (0-0.2) K/uL Immature Gran # (Auto) (0.00-0.02) K/uL PT INR APTT PTT Ratio Sodium (136-145) mmol/L Potassium (3.5-5.1) mmol/L Chloride (98-107) mmol/L Carbon Dioxide (21-32) mmol/L Anion Gap (3-11) BUN (7-18) mg/dl Creatinine (0.6-1.4) mg/dl Est Cr Clr Drug Dosing ml/min Est GFR ( Amer) ml/min Est GFR (Non-Af Amer) ml/min BUN/Creatinine Ratio (10-20) Glucose (70-99) mg/dl Lactate (0.4-2.0) mmol/L Calcium (8.5-10.1) mg/dl Magnesium (1.8-2.4) mg/dl Total Bilirubin (0.2-1) mg/dl AST (15-37) U/L ALT (12-78) U/L Alkaline Phosphatase (45-117) U/L Troponin I (0-0.045) ng/ml Total Protein (6.4-8.2) gm/dl Albumin (3.4-5.0) gm/dl Globulin (2.5-4.0) gm/dl Albumin/Globulin Ratio (0.9-2) Procalcitonin (0-0.5) ng/ml Urine Color Urine Appearance (Clear) Urine pH (4.5-7.5) Ur Specific [place] (1.000-1.030) Urine Protein (Negative) Urine Glucose (UA) (Negative) Urine Ketones (Negative) Urine Blood (Negative) Urine Nitrite (Negative) Urine Bilirubin (Negative) Urine Urobilinogen (Negative) Ur Leukocyte Esterase (Negative) Urine WBC (Auto) (0-5) /hpf Urine RBC (Auto) (0-4) /hpf U Hyaline Cast (Auto) (0-5) /lpf U Epithel Cells (Auto) (0-5) /lpf Urine Bacteria (Auto) (Negative) Granular Casts (0) /lpf Urine Mucus (None Prsent) Anaplasma Smear See Comment Babesia Smear See Comment Lyme Disease IgG Ab (Negative) Lyme Disease IgM Ab (Negative) COVID-19 Eval Order Covid19 at [facility] SARS-CoV-2 (PCR) NEGATIVE (Negative) 03/13/21 03/13/21 03/13/21 Range/Units 11:54 12:26 12:26 WBC (4.8-10.8) K/uL RBC (4.7-6.1) M/uL Hgb (14.0-18.0) g/dL Hct (42-52) % MCV (80-100) fL MCH (25-34) pg MCHC (32-36) g/dL RDW Std Deviation (36.4-46.3) fL RDW Coeff of Cisco (11.5-14.5) % Plt Count (130-400) K/uL MPV (7.4-10.4) fL Immature Gran % (Auto) % Neut % (Auto) % Lymph % (Auto) % [place] % (Auto) % Eos % (Auto) % Baso % (Auto) % Neut # (Auto) (1.4-6.5) K/uL Lymph # (Auto) (1.2-3.4) K/uL [place] # (Auto) (0.11-0.59) K/uL Eos # (Auto) (0-0.5) K/uL Baso # (Auto) (0-0.2) K/uL Immature Gran # (Auto) (0.00-0.02) K/uL PT INR APTT PTT Ratio Sodium (136-145) mmol/L Potassium (3.5-5.1) mmol/L Chloride (98-107) mmol/L Carbon Dioxide (21-32) mmol/L Anion Gap (3-11) BUN (7-18) mg/dl Creatinine (0.6-1.4) mg/dl Est Cr Clr Drug Dosing ml/min Est GFR ( Amer) ml/min Est GFR (Non-Af Amer) ml/min BUN/Creatinine Ratio (10-20) Glucose (70-99) mg/dl Lactate 1.3 (0.4-2.0) mmol/L Calcium (8.5-10.1) mg/dl Magnesium (1.8-2.4) mg/dl Total Bilirubin (0.2-1) mg/dl AST (15-37) U/L ALT (12-78) U/L Alkaline Phosphatase (45-117) U/L Troponin I (0-0.045) ng/ml Total Protein (6.4-8.2) gm/dl Albumin (3.4-5.0) gm/dl Globulin (2.5-4.0) gm/dl Albumin/Globulin Ratio (0.9-2) Procalcitonin 0.36 (0-0.5) ng/ml Urine Color Urine Appearance (Clear) Urine pH (4.5-7.5) Ur Specific [place] (1.000-1.030) Urine Protein (Negative) Urine Glucose (UA) (Negative) Urine Ketones (Negative) Urine Blood (Negative) Urine Nitrite (Negative) Urine Bilirubin (Negative) Urine Urobilinogen (Negative) Ur Leukocyte Esterase (Negative) Urine WBC (Auto) (0-5) /hpf Urine RBC (Auto) (0-4) /hpf U Hyaline Cast (Auto) (0-5) /lpf U Epithel Cells (Auto) (0-5) /lpf Urine Bacteria (Auto) (Negative) Granular Casts (0) /lpf Urine Mucus (None Prsent) Anaplasma Smear Babesia Smear Lyme Disease IgG Ab Negative (Negative) Lyme Disease IgM Ab Negative (Negative) COVID-19 Eval Order SARS-CoV-2 (PCR) (Negative) 03/13/21 03/13/21 Range/Units 12:28 14:32 WBC (4.8-10.8) K/uL RBC (4.7-6.1) M/uL Hgb (14.0-18.0) g/dL Hct (42-52) % MCV (80-100) fL MCH (25-34) pg MCHC (32-36) g/dL RDW Std Deviation (36.4-46.3) fL RDW Coeff of Cisco (11.5-14.5) % Plt Count (130-400) K/uL MPV (7.4-10.4) fL Immature Gran % (Auto) % Neut % (Auto) % Lymph % (Auto) % [place] % (Auto) % Eos % (Auto) % Baso % (Auto) % Neut # (Auto) (1.4-6.5) K/uL Lymph # (Auto) (1.2-3.4) K/uL [place] # (Auto) (0.11-0.59) K/uL Eos # (Auto) (0-0.5) K/uL Baso # (Auto) (0-0.2) K/uL Immature Gran # (Auto) (0.00-0.02) K/uL PT 9.9 INR 1.0 APTT 31.4 H PTT Ratio 1.2 Sodium (136-145) mmol/L Potassium (3.5-5.1) mmol/L Chloride (98-107) mmol/L Carbon Dioxide (21-32) mmol/L Anion Gap (3-11) BUN (7-18) mg/dl Creatinine (0.6-1.4) mg/dl Est Cr Clr Drug Dosing ml/min Est GFR ( Amer) ml/min Est GFR (Non-Af Amer) ml/min BUN/Creatinine Ratio (10-20) Glucose (70-99) mg/dl Lactate (0.4-2.0) mmol/L Calcium (8.5-10.1) mg/dl Magnesium (1.8-2.4) mg/dl Total Bilirubin (0.2-1) mg/dl AST (15-37) U/L ALT (12-78) U/L Alkaline Phosphatase (45-117) U/L Troponin I (0-0.045) ng/ml Total Protein (6.4-8.2) gm/dl Albumin (3.4-5.0) gm/dl Globulin (2.5-4.0) gm/dl Albumin/Globulin Ratio (0.9-2) Procalcitonin (0-0.5) ng/ml Urine Color Dark Yellow Urine Appearance Clear (Clear) Urine pH 5.5 (4.5-7.5) Ur Specific [place] > 1.045 H (1.000-1.030) Urine Protein 2+ H (Negative) Urine Glucose (UA) Trace H (Negative) Urine Ketones 1+ H (Negative) Urine Blood 2+ H (Negative) Urine Nitrite Negative (Negative) Urine Bilirubin Negative (Negative) Urine Urobilinogen Negative (Negative) Ur Leukocyte Esterase Negative (Negative) Urine WBC (Auto) 1-5 (0-5) /hpf Urine RBC (Auto) 5-10 H (0-4) /hpf U Hyaline Cast (Auto) 1-5 (0-5) /lpf U Epithel Cells (Auto) >30 H (0-5) /lpf Urine Bacteria (Auto) Negative (Negative) Granular Casts 1-5 H (0) /lpf Urine Mucus Present A (None Prsent) Anaplasma Smear Babesia Smear Lyme Disease IgG Ab (Negative) Lyme Disease IgM Ab (Negative) COVID-19 Eval Order SARS-CoV-2 (PCR) (Negative) Administered Medications Vancomycin HCl 1,750 mg/ (Sodium Chloride) 535 mls @ 200 mls/hr IV UD MELANIE Stop: 03/15/21 15:29 Last Admin: 03/13/21 16:38 Dose: 200 mls/hr Documented by: [id number] Discontinued Medications Acetaminophen (Acetaminophen 500 Mg Tab) 1,000 mg PO NOW STA Stop: 03/13/21 12:50 Last Admin: 03/13/21 12:52 Dose: 1,000 mg Documented by: [id number] Sodium Chloride (Nss 1000ml) 1,000 mls @ 999 mls/hr IV .Q1H1M MELANIE Stop: 03/13/21 12:45 Last Infusion: 03/13/21 13:07 Dose: 0 mls/hr Documented by: [id number] Admin: 03/13/21 12:00 Dose: 999 mls/hr Documented by: [id number] Sodium Chloride (Nss 1000ml) 1,000 mls @ 999 mls/hr IV .Q1H1M ONE Stop: 03/13/21 15:28 Last Admin: 03/13/21 14:36 Dose: 999 mls/hr Documented by: [id number] Sodium Chloride (Nss 1000ml) 500 mls @ 999 mls/hr IV .Q31M ONE Stop: 03/13/21 15:56 Last Admin: 03/13/21 16:08 Dose: 999 mls/hr Documented by: [id number] Cefepime HCl 1,000 mg/ Syringe 11.3 mls @ 5.5 mls/min IV NOW STA; Protocol Stop: 03/13/21 15:29 Last Admin: 03/13/21 16:08 Dose: 5.5 mls/min Documented by: [id number] Ioversol (Optiray 320 125ml) 120 ml IV ONCE ONE Stop: 03/13/21 13:37 Last Admin: 03/13/21 13:37 Dose: 120 ml Documented by: [id number] Imaging Data Radiologist's Impression: Chest X-Ray 03/13/21 11:42 XR chest 1V portable HISTORY: 65 years-old Male SEPSIS acute sepsis COMPARISON: Chest radiograph 10/16/2013 TECHNIQUE: Portable AP view the chest FINDINGS: Cardiac mediastinal and hilar silhouettes are within normal limits. No pneumothorax, pleural effusion, airspace consolidation or overt pulmonary edema. Degenerative changes of the shoulders and spine. IMPRESSION: No acute process. ACT 112: Negative or not required by law. The above report was generated using voice recognition software. It may contain grammatical, syntax or spelling errors. Electronically signed by: Christopher Bowser M.D. 03/13/2021 12:21 PM Abdomen/Pelvis CT 03/13/21 11:[address] WITH IV CONTRAST CT DOSE: HISTORY: nausea,tachycardia,fever,eval for infection TECHNIQUE: Multiaxial CT images of the abdomen and pelvis were performed fo llowing the use of intravenous contrast. A dose lowering technique was utilized adhering to the principles of ALARA. COMPARISON STUDY: Abdomen and pelvis CT 03/18/2017. FINDINGS: Please refer to same day chest CTA for further evaluation of the lung bases. There is mild motion artifact. No pneumoperitoneum. No pneumatosis. Bilateral L5 spondylolysis with associated grade 1 anterolisthesis. No suspicious lytic are blastic osseous lesions. Small fat-containing umbilical hernia and a small fat-containing left inguinal hernia remain unchanged. Hepatic steatosis. The gallbladder, pancreas, spleen, and adrenal glands are unremarkable. The main portal vein is patent. Calcified plaque within the normal caliber abdominal aorta. No retroperitoneal or pelvic lymphadenopathy. Multiple stones within the left kidney. No right renal calculi. No ureteral calculi. No hydronephrosis. The bladder is unremarkable. 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 No bowel wall thickening or obstruction. A few scattered colonic diverticula. No evidence for acute diverticulitis. Normal appendix. IMPRESSION: 1. No bowel wall thickening or obstruction. 2. Normal appendix. 3. Left-sided nephrolithiasis. No ureteral stones. No hydronephrosis. 4. Hepatic steatosis. 5. Additional findings as described above. ACT 112: Negative or not required by law. Electronically signed by: Desean Alvarez M.D. 03/13/2021 2:11 PM Chest CTA 03/13/21 11:45 CT ANGIOGRAPHY OF THE CHEST, PULMONARY EMBOLUS PROTOCOL CLINICAL HISTORY: Cough. Shortness of breath. Evaluate for pulmonary embolus. COMPARISON STUDY: Chest radiograph performed earlier today. PET/CT September 03, 2012. TECHNIQUE: Following IV administration of 120 mL of Optiray, helical axial images of the chest were obtained utilizing the pulmonary embolus protocol. Maximal intensity projections and sagittal and coronal reformats were viewed on an independent 3D workstation. IV contrast was administered without complication. Automated exposure control was utilized for the study. A dose lowering technique was utilized adhering to the principles of ALARA. FINDINGS: No pulmonary emboli are identified although evaluation of the bilateral lower lobe pulmonary arteries is significantly compromised due to suboptimal opacification. Mild cardiomegaly is noted. Note is made of extensive coronary artery calcification. No pericardial effusion. No enlarged thoracic nodes are present. There is no consolidation to suggest pneumonia. Central airways are patent. No pneumothorax or pleural effusion is noted. No acute fracture or suspicious lesion is identified within visualized portions of the bony thorax. Hepatic steatosis is noted within visualized portions of the upper abdomen. IMPRESSION: 1. No pulmonary emboli identified although evaluation of the bilateral lower lobe pulmonary arteries significantly compromised given suboptimal opacification and respiratory motion. 2. Mild cardiomegaly. Extensive coronary artery calcification. 3. No consolidation to suggest pneumonia. 4. Hepatic steatosis. ACT 112: Negative or not required by law. Electronically signed by: Chapincito Escobedo M.D. 03/13/2021 2:[address] 03/13/21 11:47 CT SCAN OF THE BRAIN WITHOUT IV CONTRAST CLINICAL HISTORY: Dizziness. Generalized weakness. COMPARISON STUDY: CT of the brain dated 10/03/2019. TECHNIQUE: Unenhanced axial CT scan of the brain is performed from the vertex to the skull base. A dose lowering technique was utilized adhering to the principles of ALARA. CT DOSE: 3096.09 mGy.cm FINDINGS: Brain parenchyma: There is minimal microangiopathic change. There is no hemorrhage, mass effect, or evidence of acute territorial ischemia by CT criteria. Richardson-white matter differentiation is preserved. No extra-axial fluid collection is seen. Ventricles, sulci, cisterns: Normal in configuration. Intracranial vasculature: There is atherosclerotic calcification of the cavernous carotid and vertebral arteries. Calvarium: Unremarkable. Sinuses and mastoids: The visualized paranasal sinuses are clear. There are large mastoid effusions with evidence of previous right mastoid surgery. Orbits: The bony orbits are grossly intact. IMPRESSION: 1. There is no hemorrhage, mass effect, or evidence of acute territorial ischemia by CT criteria. 2. Large bilateral mastoid effusions and evidence of previous right mastoid surgery. ACT 112: Negative or not required by law. Electronically signed by: Ludwin Jerez M.D. 03/13/2021 1:56 PM Discharge Plan Visit Data Chief Complaint: Illness ED Provider: Chacorta Mahoney Discharge Problem: Sepsis Forms Stand Alone Forms: [facility] [employer] Prescriptions Prescriptions: No Action Lupron Depot (6 Month) 45 mg syringe kit 45 mg IM .[id number] Qty: 1 RF: 0 metoprolol succinate 50 mg Tablet Extended Release 24 Hr 50 mg PO BID RF: 0 prednisone 5 mg Tablet 5 mg PO BID RF: 0 lisinopril 10 mg Tablet 10 mg PO QAM RF: 0 albuterol sulfate [ProAir HFA] 90 mcg/actuation Hfa Aerosol Inhaler 1 - 2 puff INHALATION Q4 PRN (Reason: Shortness Of Breath Or Wheezing) RF: 0 ezetimibe [Zetia] 10 mg Tablet 10 mg PO HS RF: 0 metformin 1,000 mg Tablet 1,000 mg PO BIDM RF: 0 abiraterone [Zytiga] 250 mg Tablet 250 mg PO BID RF: 0 aspirin [Aspir-81] 81 mg Tablet,Delayed Release (Dr/Ec) 81 mg PO DAILY RF: 0 Tradjenta 5 mg Tablet 5 mg PO QAM RF: 0 Referrals Referrals: Joanna Angeles MD [Primary Care Provider] - Discharge Problem: Sepsis Qualifiers: Sepsis type: sepsis due to unspecified organism Sepsis acute organ dysfunction status: without acute organ dysfunction Qualified Code(s): A41.9 - Sepsis, unspecified organism
[2021-03-13 12:06] LABS: Basophils # (auto) 0.01 K/uL (0-0.2); Basophils % (auto) 0.2 %; Hematocrit (blood only) 41.5 % (42-52); Hemoglobin 14.1 g/dL (14.0-18.0); Immature Granulocytes # (auto) 0.02 K/uL (0.00-0.02); Immature Granulocytes % (auto) 0.3 %; Lymphocytes % (auto) 8.4 %; Mean Corpuscular Volume 91.2 fL (80-100); Mean Platelet Volume 9.7 fL (7.4-10.4); Monocytes # (auto) 0.28 K/uL (0.11-0.59); Monocytes % (auto) 4.7 %; Neutrophils # (auto) 5.17 K/uL (1.4-6.5); Neutrophils % (auto) 86.4 %; Platelet Count 128 K/uL (130-400); RDW Coefficient of Variation 12.9 % (11.5-14.5); RDW Standard Deviation 43.2 fL (36.4-46.3); Red Blood Count 4.55 M/uL (4.7-6.1); White Blood Count 5.98 K/uL (4.8-10.8)
[2021-03-13 12:09] LABS: Alanine Aminotransferase 56 U/L (12-78); Albumin Level 3.2 gm/dl (3.4-5.0); Aspartate Aminotransferase 71 U/L (15-37); BUN Creatinine Ratio 11.7 (10-20); Blood Urea Nitrogen 10 mg/dl (7-18); Calcium 9.6 mg/dl (8.5-10.1); Carbon Dioxide 21 mmol/L (21-32); Chloride 94 mmol/L (98-107); Creatinine Clr Calc Pharmacy 103.2 ml/min; Est GFR (African American) 103.3 ml/min; Est GFR (Non-African American) 89.1 ml/min; Glucose 228 mg/dl (70-99); Magnesium 1.8 mg/dl (1.8-2.4); Potassium 3.5 mmol/L (3.5-5.1); Sodium 126 mmol/L (136-145)
[2021-03-13 12:13] LABS: Albumin Globulin Ratio 0.7 (0.9-2); Alkaline Phosphatase 78 U/L (45-117); Bilirubin,Total 1.5 mg/dl (0.2-1); Globulin 4.6 gm/dl (2.5-4.0); Total Protein 7.8 gm/dl (6.4-8.2); Troponin I < 0.015 ng/ml (0-0.045)
--- NOTE | 2021-03-13 12:22 | XRay Report ---
XR chest 1V portable HISTORY: 65 years-old Male SEPSIS acute sepsis COMPARISON: Chest radiograph 10/16/2013 TECHNIQUE: Portable AP view the chest FINDINGS: Cardiac mediastinal and hilar silhouettes are within normal limits. No pneumothorax, pleural effusion , airspace consolidation or overt pulmonary edema. Degenerative changes of the shoulders and spine. IMPRESSION: No acute process. ACT 112: Negative or not required by law. The above report was generated using voice recognition software. It may contain grammatical, syntax o r spelling errors. Electronically signed by: Christopher Bowser M.D. 03/13/2021 12:21 PM
[2021-03-13] MEDS ORDERED: ACETAMINOPHEN 500 MG TAB PO STA (12:49)
[2021-03-13 13:00] LABS: Partial Thromboplastin Ratio 1.2; Partial Thromboplastin Time 31.4 Seconds (21.0-31.0); Prothrombin Time 9.9 Seconds (9.0-12.0)
[2021-03-13] MEDS ORDERED: OPTIRAY 320 125ml IV ONE (13:36)
--- NOTE | 2021-03-13 13:58 | CT Scan Report ---
CT SCAN OF THE BRAIN WITHOUT IV CONTRAST CLINICAL HISTORY: Dizziness. Generalized weakness. COMPARISON STUDY: CT of the brain dated 10/03/2019. TECHNIQUE: Unenhanced axial CT scan of the brain is performed from the vertex to the skull base. A d ose lowering technique was utilized adhering to the principles of ALARA. CT DOSE: 3096.09 mGy.cm FINDINGS: Brain parenchyma: There is minimal microangiopathic change. There is no hemorrhage, mass effect, or e vidence of acute territorial ischemia by CT criteria. Richardson-white matter differentiation is preserved. No extra-axial fluid collection is seen. Ventricles, sulci, cisterns: Normal in configuration. Intracranial vasculature: There is atherosclerotic calcification of the cavernous carotid and vertebr al arteries. Calvarium: Unremarkable. Sinuses and mastoids: The visualized paranasal sinuses are clear. There are large mastoid effusions w ith evidence of previous right mastoid surgery. Orbits: The bony orbits are grossly intact. IMPRESSION: 1. There is no hemorrhage, mass effect, or evidence of acute territorial ischemia by CT criteria. 2. Large bilateral mastoid effusions and evidence of previous right mastoid surgery. ACT 112: Negative or not required by law. Electronically signed by: Ludwin Jerez M.D. 03/13/2021 1:56 PM
--- NOTE | 2021-03-13 14:02 | CT Scan Report ---
CT ANGIOGRAPHY OF THE CHEST, PULMONARY EMBOLUS PROTOCOL CLINICAL HISTORY: Cough. Shortness of breath. Evaluate for pulmonary embolus. COMPARISON STUDY: Chest radiograph performed earlier today. PET/CT September 03, 2012. TECHNIQUE: Following IV administration of 120 mL of Optiray, helical axial images of the chest were o btained utilizing the pulmonary embolus protocol. Maximal intensity projections and sagittal and cor onal reformats were viewed on an independent 3D workstation. IV contrast was administered without co mplication. Automated exposure control was utilized for the study. A dose lowering technique was ut ilized adhering to the principles of ALARA. FINDINGS: No pulmonary emboli are identified although evaluation of the bilateral lower lobe pulmona ry arteries is significantly compromised due to suboptimal opacification. Mild cardiomegaly is noted. Note is made of extensive coronary artery calcification. No pericardial effusion. No enlarged thorac ic nodes are present. There is no consolidation to suggest pneumonia. Central airways are patent. No pneumothorax or pleural effusion is noted. No acute fracture or suspicious lesion is identified withi n visualized portions of the bony thorax. Hepatic steatosis is noted within visualized portions of th e upper abdomen. IMPRESSION: 1. No pulmonary emboli identified although evaluation of the bilateral lower lobe pulmonary arteries significantly compromised given suboptimal opacification and respiratory motion. 2. Mild cardiomegaly. Extensive coronary artery calcification. 3. No consolidation to suggest pneumonia. 4. Hepatic steatosis. ACT 112: Negative or not required by law. Electronically signed by: Chapincito Escobedo M.D. 03/13/2021 2:01 PM
--- NOTE | 2021-03-13 14:12 | CT Scan Report ---
ABDOMEN AND PELVIS CT WITH IV CONTRAST CT DOSE: HISTORY: nausea,tachycardia,fever,eval for infection TECHNIQUE: Multiaxial CT images of the abdomen and pelvis were performed following the use of intrave nous contrast. A dose lowering technique was utilized adhering to the principles of ALARA. COMPARISON STUDY: Abdomen and pelvis CT 03/18/2017. FINDINGS: Please refer to same day chest CTA for further evaluation of the lung bases. There is mild motion artifact. No pneumoperitoneum. No pneumatosis. Bilateral L5 spondylolysis with associated grad e 1 anterolisthesis. No suspicious lytic are blastic osseous lesions. Small fat-containing umbilical hernia and a small fat-containing left inguinal hernia remain unchanged. Hepatic steatosis. The gallb ladder, pancreas, spleen, and adrenal glands are unremarkable. The main portal vein is patent. Calcif ied plaque within the normal caliber abdominal aorta. No retroperitoneal or pelvic lymphadenopathy. M ultiple stones within the left kidney. No right renal calculi. No ureteral calculi. No hydronephrosis . The bladder is unremarkable. 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 No bowel wall thickening or obstruction. A few scattered colonic diverticula. No evidence for acute div erticulitis. Normal appendix. IMPRESSION: 1. No bowel wall thickening or obstruction. 2. Normal appendix. 3. Left-sided nephrolithiasis. No ureteral stones. No hydronephrosis. 4. Hepatic steatosis. 5. Additional findings as described above. ACT 112: Negative or not required by law. Electronically signed by: Desean Alvarez M.D. 03/13/2021 2:11 PM
[2021-03-13] MEDS ORDERED: SODIUM CHLORIDE 0.9% 1000ML 1,000 ML IV ONE (14:28)
--- NOTE | 2021-03-13 14:35 | Electrocardiogram Report ---
Test Reason : Blood Pressure : / mmHG Vent. Rate : 144 BPM Atrial Rate : 144 BPM P-R Int : 104 ms QRS Dur : 076 ms QT Int : 360 ms P-R-T Axes : 000 -44 028 degrees QTc Int : 557 ms Sinus tachycardia with short UT Left axis deviation Low voltage QRS Inferior infarct , age undetermined Cannot rule out Anterior infarct , age undetermined Abnormal ECG When compared with ECG of 15-MAR-2014 11:51, Vent. rate has increased BY 66 BPM Minimal criteria for Anterior infarct are now Present Inferior infarct is now Present Confirmed by Terry Middleton ([id number]) on 03/13/2021 2:35:03 PM Referred By: REFERRED SELF Confirmed By:Rodrigo Middleton
[2021-03-13 15:01] LABS: Appearance Urine Clear (Clear); Bacteria Urine Automated Negative (Negative); Bilirubin Urine Negative (Negative); Blood Urine 2+ (Negative); Color Urine Dark Yellow; Epithelial Cell Urine Auto >30 /lpf (0-5); Glucose Urine UA Trace (Negative); Ketones Urine 1+ (Negative); Leukocyte Esterase Urine Negative (Negative); Nitrite Urine Negative (Negative); Protein Urine 2+ (Negative); Specific Gravity Urine > 1.045 (1.000-1.030); Urobilinogen Urine Negative (Negative); pH Urine 5.5 (4.5-7.5)
[2021-03-13 15:18] LABS: Mucus Urine Present (None Prsent)
[2021-03-13] MEDS ORDERED: SODIUM CHLORIDE 0.9% 1000ML 500 ML IV ONE (15:26)
[2021-03-13] MEDS ORDERED: CEFEPIME 1,000 MG in SYRINGE 0 ML IV STA (15:27)
[2021-03-13] MEDS ORDERED: VANCOMYCIN CONSULT ACTIVE PRN (15:27)
[2021-03-13] MEDS ORDERED: VANCOMYCIN HCL 1,750 MG in SODIUM CHLORIDE 0.9% 500 ML IV SCH (15:30)
--- NOTE | 2021-03-13 15:47 | History & Physical Report ---
Date of Service March 13, 2021 Assessment & Plan (1) Sepsis: Plan: Normal wbc count, negative procalcitonin, and mildly low platelets suggests viral or tick-borne disease etiology. Bacterial process (ie bacteremia, etc) is possible but less likely. COVID testing negative. Checked a rapid flu test - also negative. Lyme negative although this does not rule out early Lyme. Anaplasmosis screen negative; babesiosis screen negative. Given the recent tick bite (~1 week ago) his clinical picture may be due to anaplasmosis. Plan - * blood cultures x 2 * follow urine culture * empiric rocephin x 48 hours while awaiting blood cultures * empiric doxycycline IV for possible anaplasmosis * if fevers persist despite doxy consider additional viral work-up (EBV, CMV, BioFire panel, etc) * IV fluids + stress dose steroids IV * defer on MRSA coverage for now * send anaplasmosis DNA test (2) Tick bite of abdominal wall: Plan: In light of #1 above he could have tick-borne illness; in particular, anaplasmosis would be top of differential. See above. (3) Hyponatremia: Plan: Likely due to volume depletion in the setting of #1. He looks dehydrated on exam. IV fluids, and repeat BMP tonight and then again in am. (4) Thrombocytopenia: Plan: 2nd to #1. Follow cultures. Empiric doxycycline for tick-borne disease. Consider viral work-up. CBC in am. (5) Elevated AST (SGOT): Plan: Viral or tickborne etiology most likely. Serial LFTs. (6) Diabetes mellitus type 2, uncontrolled: Plan: He does not check BSGs at home. Place on DM diet. Add lantus 10 units BID. Add novolog SSI. Suspect adjustments will be needed given stress dose steroids and stress of illness. Check HbA1c in am. Hold Tradjenta. Hold metformin. (7) CAD (coronary artery disease): Plan: No ischemic symptoms at this time. Cont metoprolol, aspirin. Cont zetia. (8) Morbid obesity with BMI of 40.0-44.9, adult: Plan: BMI 40.5 (9) Hyperlipidemia: Plan: Cont zetia (10) Hypertension: Plan: Hold lisinopril Cont metoprolol - lower this dose if necessary (11) Prostate cancer: Plan: On chronic Zytiga and prednisone 5mg BID. Given the chronic prednisone he will need stress dose steroids while here. Hold Zytiga for now. 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 With drainage intermittently and hearing loss. (13) Mastoid disorder: Plan: b/l effusions. no symptoms of mastoiditis. chronic. (14) Tachycardia: Plan: 2nd to #1. 2nd to dehydration. Should improve with hydration, Rx of sepsis, and time. Place on telemetry. Cont his usual beta nichole. EKG with sinus tach. (15) DVT prophylaxis: Plan: heparin SC cautiously in light of mild thrombocytopenia Plan: updated at bedside extensively History of Present Illness Chief Complaint: fevers, fatigue, myalgias Primary Care Provider: Joanna Angeles MD 65yo male with h/o CAD, T2DM, and HTN presents with subjective fever, chills, severe fatigue, anorexia, and myalgias starting Saturday pm. He has slept most of the time since falling ill on Saturday. He has had b/l ear drainage, mainly right-sided, but this is chronic. Denies ear pain. Denies nasal congestion or sore throat. Has had slight cough but feels that this is chronic and typically worse in the fall/early winter. No nausea/emesis/diarrhea/abd pain. No dysuria. No rashes. Denies any travel out of the state but he was at his hunting camp 03/01 through 03/05. The camp is in [facility]. He was bitten by a tick and found it near his umbilicus. pulled the tick off his skin the day he arrived home from [place]. Has had minimal erythema near the tick bite site. The tick may have been imbedded for 24+ hours. Patient has been vaccinated against COVID-19 and his COVID test today is negative. Despite his illness he has had no sick contacts and is not ill. Allergies Allergy/AdvReac Type Severity Reaction Status Date / Time No Known Allergies Allergy Verified 03/13/21 11:28 Home Medications Medication Instructions Recorded Confirmed Type albuterol sulfate 90 mcg/actuation 1 - 2 puff INHALATION Q4 PRN 01/29/19 03/13/21 History aerosol inhaler (ProAir HFA) ezetimibe 10 mg tablet (Zetia) 10 mg PO HS 01/29/19 03/13/21 History lisinopril 10 mg tablet 10 mg PO QAM 01/29/19 03/13/21 History metoprolol succinate 50 mg 50 mg PO BID 01/29/19 03/13/21 History tablet,extended release 24 hr prednisone 5 mg tablet 5 mg PO BID 01/29/19 03/13/21 History leuprolide (6 month) 45 mg 45 mg IM .[id number] #1 ea 02/23/19 03/13/21 Rx intramuscular syringe kit (Lupron Depot) abiraterone 250 mg tablet (Zytiga) 250 mg PO BID 10/03/19 03/13/21 History metformin 1,000 mg tablet 1,000 mg PO BIDM 10/03/19 03/13/21 History aspirin 81 mg tablet,delayed 81 mg PO DAILY 03/13/21 03/13/21 History release linagliptin 5 mg tablet (Tradjenta) 5 mg PO QAM 03/13/21 03/13/21 History Past Med/Surg History Medical History (Updated 03/13/21 @ 22:31 by Juan Pablo Donaldson) Diabetes mellitus type 2, uncontrolled DJD (degenerative joint disease) of hip (03/30/14) Hyperlipidemia Hypertension Myocardial infarction 1998 - [facility], s/p stent; follows w/ Dr Munir Watkins Prostate cancer (07/09/12) "Rising PSA pretreatment PSA 40 abnormal digital rectal exam Status post biopsies confirming adenocarcinoma [place] 4+3 Clinical stage TIIb, biopsy stage T2c/T3 Suspicious bone scan for metastasis biopsy negative Status post seed implant with cesium 131 on 10/23/2012. 48 seeds placed received 8500 cGy as a boost Status post IMRT/IGRT completed 02/05/2013 received 5040 cGy Ongoing hormonal suppression Lymph node progression on CT of the pelvis abnormal bone scan Abnormal bone scan On going treatment with Zytiga and prednisone" On 09/11/16 15:35 Bonita Franklin wrote "Rising PSA pretreatment PSA 40 abnormal digital rectal exam Status post biopsies confirming adenocarcinoma [place] 4+3 Clinical stage TIIb, biopsy stage T2c/T3 Suspicious bone scan for metastasis biopsy negative Status post seed implant with cesium 131 on 10/23/2012. 48 seeds placed received 8500 cGy as a boost Status post IMRT/IGRT completed 02/05/2013 received 5040 cGy Ongoing hormonal suppression Lymph node progression on CT of the pelvis abnormal bone scan Abnormal bone scan On going treatment with Zytiga" On 11/23/15 16:31 Bonita Franklin wrote "Rising PSA pretreatment PSA 40 abnormal digital rectal exam Status post biopsies confirming adenocarcinoma [place] 4+3 Clinical stage TIIb, biopsy stage T2c/T3 Suspicious bone scan for metastasis biopsy negative Status post seed implant with cesium 131 on 10/23/2012. 48 seeds placed received 8500 cGy as a boost Status post IMRT/IGRT completed 02/05/2013 received 5040 cGy Ongoing hormonal suppression Lymph node progression on CT of the pelvis abnormal bone scan Abnormal bone scan" On 09/15/14 15:06 Bonita Franklin wrote "Rising PSA pretreatment PSA 40 abnormal digital rectal exam Status post biopsies confirming adenocarcinoma [place] 4+3 Clinical stage TIIb, biopsy stage T2c/T3 Suspicious bone scan for metastasis biopsy negative Status post seed implant with cesium 131 on 10/23/2012. 48 seeds placed received 8500 cGy as a boost Status post IMRT/IGRT completed 02/05/2013 received 5040 cGy Ongoing hormonal suppression" Surgical History (Updated 03/13/21 @ 16:05 by Juan Pablo Donaldson) H/O wrist surgery b/l - ganglions? 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 Beliefs That Will Affect Care: None marital status: Current Living Situation: Spouse Current Living Situation Comment: lives in [facility] with current occupational status: retired 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); 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 How many Children do You have: 2 Feels Safe at Home: Yes Safety Concerns: Feels Safe At This Time Assistive Devices: Denture - Upper, Glasses, Hearing Aid - Left and Hearing Aid - Right Assistive Devices Comment: glasses here, others at home, will bring later Review of Systems Review of Systems: gen - subjective fevers, chills, fatigue, anorexia Eyes - denies discharge or visual loss HENT - chronic drainage, mainly right ear canal; no nasal discharge; no sore throat Pulm - minimal cough - chronic; mild dyspnea this weekend per CV - tachycardia noted at local urgent care, but no chest pain GI - no nausea/emesis/diarrhea/abd pain - no dysuria Musculo - bodyaches but no arthralgias or joint swelling skin - no rash; tick bite site with minimal erythema per Psych - no depression or anxiety Heme - easy bruising (arms) Physical Exam Physical Exam: gen - obese, NAD, nontoxic, hearing impaired eyes - PERRL HENT - right TM with perforation; no drainage in canal; left TM normal landmarks, no drainage in canal; nose clear; mouth - MM dry Neck - supple, no lymphadenopathy, no thyroidmegaly Heart- Tachy, s1, s2, no murmur Lungs - CTA b/l, no rales, no increased work of breathing Abd - soft, NT, ND, BS+, no HSM; minimal umbilical hernia present Ext - no edema, pulses 2+ b/l skin - no generalized rash; tick bite site right of umbilicus with minimal erythema; scar over L knee; old scar right ness; feet w/o ulcers Musculo - no joint effusions neuro - strength 5/5 x 4 exts; DTRs 2+ b/l Psych - a/o x 3 lymph - no cervical lymphadenopathy Results & Data Results & Data ([facility]) Vital Signs (Past 12 Hours) Vital Signs Temp Pulse Resp BP Pulse Ox 03/13/21 15:00 106 H 15 144/68 H 95 03/13/21 14:30 126 H 27 H 03/13/21 14:00 118 H 28 H 124/65 92 03/13/21 13:44 37.8 C H 03/13/21 13:42 93 03/13/21 13:00 129 H 28 H 145/89 H 94 03/13/21 12:49 39.0 C H 03/13/21 12:30 127 H 34 H 95 03/13/21 12:00 38.4 C H 136 H 23 95 03/13/21 11:42 18 93 03/13/21 11:30 141 H 25 H 93 03/13/21 11:08 39.0 C H 145 H 18 145/89 H 93 03/13/21 11:00 145 H 18 94 03/13/21 10:56 144 H 11 L 96 Laboratory Results Laboratory Results - last 24 hr 03/13/21 03/13/21 03/13/21 11:08 11:08 11:08 WBC 5.98 RBC 4.55 L Hgb 14.1 Hct 41.5 L MCV 91.2 MCH 31.0 MCHC 34.0 RDW Std Deviation 43.2 RDW Coeff of Cisco 12.9 Plt Count 128 L MPV 9.7 Immature Gran % (Auto) 0.3 Neut % (Auto) 86.4 Lymph % (Auto) 8.4 [place] % (Auto) 4.7 Eos % (Auto) 0.0 Baso % (Auto) 0.2 Neut # (Auto) 5.17 Lymph # (Auto) 0.50 L [place] # (Auto) 0.28 Eos # (Auto) 0.00 Baso # (Auto) 0.01 Immature Gran # (Auto) 0.02 PT Cancelled INR Cancelled APTT Cancelled PTT Ratio Cancelled Sodium 126 L Potassium 3.5 Chloride 94 L Carbon Dioxide 21 Anion Gap 12.0 H BUN 10 Creatinine 0.89 Est Cr Clr Drug Dosing 103.2 Est GFR ( Amer) 103.3 Est GFR (Non-Af Amer) 89.1 BUN/Creatinine Ratio 11.7 Glucose 228 H Lactate Calcium 9.6 Magnesium 1.8 Total Bilirubin 1.5 H AST 71 H ALT 56 Alkaline Phosphatase 78 Troponin I < 0.015 Total Protein 7.8 Albumin 3.2 L Globulin 4.6 H Albumin/Globulin Ratio 0.7 L Procalcitonin Urine Color Urine Appearance Urine pH Ur Specific [place] Urine Protein Urine Glucose (UA) Urine Ketones Urine Blood Urine Nitrite Urine Bilirubin Urine Urobilinogen Ur Leukocyte Esterase Urine WBC (Auto) Urine RBC (Auto) U Hyaline Cast (Auto) U Epithel Cells (Auto) Urine Bacteria (Auto) Granular Casts Urine Mucus Anaplasma Smear Babesia Smear Babesia microti DNA PCR Lyme Disease IgG Ab Lyme Disease IgM Ab COVID-19 Eval Order SARS-CoV-2 (PCR) 11/06/0203/13/21 03/13/21 11:08 11:08 11:08 WBC RBC Hgb Hct MCV MCH MCHC RDW Std Deviation RDW Coeff of Cisco Plt Count MPV Immature Gran % (Auto) Neut % (Auto) Lymph % (Auto) [place] % (Auto) Eos % (Auto) Baso % (Auto) Neut # (Auto) Lymph # (Auto) [place] # (Auto) Eos # (Auto) Baso # (Auto) Immature Gran # (Auto) PT INR APTT PTT Ratio Sodium Potassium Chloride Carbon Dioxide Anion Gap BUN Creatinine Est Cr Clr Drug Dosing Est GFR ( Amer) Est GFR (Non-Af Amer) BUN/Creatinine Ratio Glucose Lactate Calcium Magnesium Total Bilirubin AST ALT Alkaline Phosphatase Troponin I Total Protein Albumin Globulin Albumin/Globulin Ratio Procalcitonin Urine Color Urine Appearance Urine pH Ur Specific [place] Urine Protein Urine Glucose (UA) Urine Ketones Urine Blood Urine Nitrite Urine Bilirubin Urine Urobilinogen Ur Leukocyte Esterase Urine WBC (Auto) Urine RBC (Auto) U Hyaline Cast (Auto) U Epithel Cells (Auto) Urine Bacteria (Auto) Granular Casts Urine Mucus Anaplasma Smear See Comment Babesia Smear See Comment Babesia microti DNA PCR Lyme Disease IgG Ab Lyme Disease IgM Ab COVID-19 Eval Order Covid19 at [facility] SARS-CoV-2 (PCR) NEGATIVE 03/13/21 03/13/21 03/13/21 11:08 11:54 12:26 WBC RBC Hgb Hct MCV MCH MCHC RDW Std Deviation RDW Coeff of Cisco Plt Count MPV Immature Gran % (Auto) Neut % (Auto) Lymph % (Auto) [place] % (Auto) Eos % (Auto) Baso % (Auto) Neut # (Auto) Lymph # (Auto) [place] # (Auto) Eos # (Auto) Baso # (Auto) Immature Gran # (Auto) PT INR APTT PTT Ratio Sodium Potassium Chloride Carbon Dioxide Anion Gap BUN Creatinine Est Cr Clr Drug Dosing Est GFR ( Amer) Est GFR (Non-Af Amer) BUN/Creatinine Ratio Glucose Lactate 1.3 Calcium Magnesium Total Bilirubin AST ALT Alkaline Phosphatase Troponin I Total Protein Albumin Globulin Albumin/Globulin Ratio Procalcitonin 0.36 Urine Color Urine Appearance Urine pH Ur Specific [place] Urine Protein Urine Glucose (UA) Urine Ketones Urine Blood Urine Nitrite Urine Bilirubin Urine Urobilinogen Ur Leukocyte Esterase Urine WBC (Auto) Urine RBC (Auto) U Hyaline Cast (Auto) U Epithel Cells (Auto) Urine Bacteria (Auto) Granular Casts Urine Mucus Anaplasma Smear Babesia Smear Babesia microti DNA PCR Pending Lyme Disease IgG Ab Lyme Disease IgM Ab COVID-19 Eval Order SARS-CoV-2 (PCR) 03/13/21 03/13/21 03/13/21 12:26 12:28 14:32 WBC RBC Hgb Hct MCV MCH MCHC RDW Std Deviation RDW Coeff of Cisco Plt Count MPV Immature Gran % (Auto) Neut % (Auto) Lymph % (Auto) [place] % (Auto) Eos % (Auto) Baso % (Auto) Neut # (Auto) Lymph # (Auto) [place] # (Auto) Eos # (Auto) Baso # (Auto) Immature Gran # (Auto) PT 9.9 INR 1.0 APTT 31.4 H PTT Ratio 1.2 Sodium Potassium Chloride Carbon Dioxide Anion Gap BUN Creatinine Est Cr Clr Drug Dosing Est GFR ( Amer) Est GFR (Non-Af Amer) BUN/Creatinine Ratio Glucose Lactate Calcium Magnesium Total Bilirubin AST ALT Alkaline Phosphatase Troponin I Total Protein Albumin Globulin Albumin/Globulin Ratio Procalcitonin Urine Color Dark Yellow Urine Appearance Clear Urine pH 5.5 Ur Specific [place] > 1.045 H Urine Protein 2+ H Urine Glucose (UA) Trace H Urine Ketones 1+ H Urine Blood 2+ H Urine Nitrite Negative Urine Bilirubin Negative Urine Urobilinogen Negative Ur Leukocyte Esterase Negative Urine WBC (Auto) 1-5 Urine RBC (Auto) 5-10 H U Hyaline Cast (Auto) 1-5 U Epithel Cells (Auto) >30 H Urine Bacteria (Auto) Negative Granular Casts 1-5 H Urine Mucus Present A Anaplasma Smear Babesia Smear Babesia microti DNA PCR Lyme Disease IgG Ab Pending Lyme Disease IgM Ab Pending COVID-19 Eval Order SARS-CoV-2 (PCR) Diagnostic Findings Chest X-Ray 03/13/21 11:42 XR chest 1V portable HISTORY: 65 years-old Male SEPSIS acute sepsis COMPARISON: Chest radiograph 10/16/2013 TECHNIQUE: Portable AP view the chest FINDINGS: Cardiac mediastinal and hilar silhouettes are within normal limits. No pneumotho rax, pleural effusion, airspace consolidation or overt pulmonary edema. Degenerative changes of the shoulders and spine. IMPRESSION: No acute process. ACT 112: Negative or not required by law. The above report was generated using voice recognition software. It may contain grammatical, syntax or spelling errors. Electronically signed by: Christopher Bowser M.D. 03/13/2021 12:21 PM Abdomen/Pelvis CT 03/13/21 11:[address] WITH IV CONTRAST CT DOSE: HISTORY: nausea,tachycardia,fever,eval for infection TECHNIQUE: Multiaxial CT images of the abdomen and pelvis were performed following the use of intravenous contrast. A dose lowering technique was utilized adhering to the principles of ALARA. COMPARISON STUDY: Abdomen and pelvis CT 03/18/2017. FINDINGS: Please refer to same day chest CTA for further evaluation of the lung bases. There is mild motion artifact. No pneumoperitoneum. No pneumatosis. Bilateral L5 spondylolysis with associated grade 1 anterolisthesis. No suspicious lytic are blastic osseous lesions. Small fat-containing umbilical hernia and a small fat-containing left inguinal hernia remain unchanged. Hepatic steatosis. The gallbladder, pancreas, spleen, and adrenal glands are unremarkable. The main portal vein is patent. Calcified plaque within the normal caliber abdominal aorta. No retroperitoneal or pelvic lymphadenopathy. Multiple stones within the left kidney. No right renal calculi. No ureteral calculi. No hydronephrosis. The bladder is unremarkable. 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 No bowel wall thickening or obstruction. A few scattered colonic diverticula. No evidence for acute diverticulitis. Normal appendix. IMPRESSION: 1. No bowel wall thickening or obstruction. 2. Normal appendix. 3. Left-sided nephrolithiasis. No ureteral stones. No hydronephrosis. 4. Hepatic steatosis. 5. Additional findings as described above. ACT 112: Negative or not required by law. Electronically signed by: Desean Alvarez M.D. 03/13/2021 2:11 PM Chest CTA 03/13/21 11:45 CT ANGIOGRAPHY OF THE CHEST, PULMONARY EMBOLUS PROTOCOL CLINICAL HISTORY: Cough. Shortness of breath. Evaluate for pulmonary embolus. COMPARISON STUDY: Chest radiograph performed earlier today. PET/CT September 03, 2012. TECHNIQUE: Following IV administration of 120 mL of Optiray, helical axial images of the chest were obtained utilizing the pulmonary embolus protocol. Maximal intensity projections and sagittal and coronal reformats were viewed on an independent 3D workstation. IV contrast was administered without complication. Automated exposure control was utilized for the study. A dose lowering technique was utilized adhering to the principles of ALARA. FINDINGS: No pulmonary emboli are identified although evaluation of the bilateral lower lobe pulmonary arteries is significantly compromised due to suboptimal opacification. Mild cardiomegaly is noted. Note is made of extensive coronary artery calcification. No pericardial effusion. No enlarged thoracic nodes are present. There is no consolidation to suggest pneumonia. Central airways are patent. No pneumothorax or pleural effusion is noted. No acute fracture or suspicious lesion is identified within visualized portions of the bony thorax. Hepatic steatosis is noted within visualized portions of the upper abdomen. IMPRESSION: 1. No pulmonary emboli identified although evaluation of the bilateral lower lobe pulmonary arteries significantly compromised given suboptimal opacification and respiratory motion. 2. Mild cardiomegaly. Extensive coronary artery calcification. 3. No consolidation to suggest pneumonia. 4. Hepatic steatosis. ACT 112: Negative or not required by law. Electronically signed by: Chapincito Escobedo M.D. 03/13/2021 2:[address] 03/13/21 11:47 CT SCAN OF THE BRAIN WITHOUT IV CONTRAST CLINICAL HISTORY: Dizziness. Generalized weakness. COMPARISON STUDY: CT of the brain dated 10/03/2019. TECHNIQUE: Unenhanced axial CT scan of the brain is performed from the vertex to the skull base. A dose lowering technique was utilized adhering to the principles of ALARA. CT DOSE: 3096.09 mGy.cm FINDINGS: Brain parenchyma: There is minimal microangiopathic change. There is no hemorrha ge, mass effect, or evidence of acute territorial ischemia by CT criteria. Richardson- white matter differentiation is preserved. No extra-axial fluid collection is seen. Ventricles, sulci, cisterns: Normal in configuration. Intracranial vasculature: There is atherosclerotic calcification of the cavernous carotid and vertebral arteries. Calvarium: Unremarkable. Sinuses and mastoids: The visualized paranasal sinuses are clear. There are large mastoid effusions with evidence of previous right mastoid surgery. Orbits: The bony orbits are grossly intact. IMPRESSION: 1. There is no hemorrhage, mass effect, or evidence of acute territorial ischemia by CT criteria. 2. Large bilateral mastoid effusions and evidence of previous right mastoid surgery. ACT 112: Negative or not required by law. Electronically signed by: Ludwin Jerez M.D. 03/13/2021 1:56 PM EKG - my reading - sinus tach, inferior Q waves, ST flattening III/AVF; otherwise no acute ST changes Code Status & VTE Plan Code Status full code PG Care Time/CCT Total # of Minutes Spent Total Time Spent with Patient: Total time spent is greater than 50% in coordination of care (as documented) at patient's floor/unit and/or counseling patient: Coding Level of Care Code 91047 Initial Inpt Care Lvl 3 Diagnoses Sepsis A41.9 Hyponatremia E87.1 Thrombocytopenia D69.6 Elevated AST (SGOT) R74.01 Diabetes mellitus type 2, uncontrolled E11.65 CAD (coronary artery disease) I25.10 Morbid obesity with BMI of 40.0-44.9, adult E66.01; Z68.41 DVT prophylaxis Z29.9 Tick bite of abdominal wall S30.861A; W57.XXXA Hyperlipidemia E78.5 Hypertension I10 Prostate cancer C61 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
[2021-03-13] MEDS ORDERED: DOXYCYCLINE HYCLATE 100 MG in DEXTROSE 5% 100 ML IV STA (16:36)
[2021-03-13] MEDS ORDERED: HYDROCORTISONE SOD SUCCINATE 100 MG/2 ML VIAL IV STA (16:40)
[2021-03-13 16:50] LABS: Lyme Ab IgG w/WB Rflx Negative (Negative); Lyme Ab IgM w/WB Rflx Negative (Negative)
[2021-03-13] MEDS ORDERED: ONDANSETRON INJ 2 MG/ML 2 ML VIAL IV PRN (20:02)
[2021-03-13] MEDS ORDERED: NITROGLYCERIN SL 0.4 MG/TAB TAB SL PRN (20:02)
[2021-03-13] MEDS ORDERED: ACETAMINOPHEN 325 MG TAB PO PRN (20:02)
[2021-03-13] MEDS ORDERED: ALBUTEROL HFA INHALER 8.5 GM INH PRN (20:34)
[2021-03-13] MEDS: METOPROLOL SUCC 50MG EXT REL TAB PO SCH (21:41)
[2021-03-13] MEDS: NSS + 20MEQ KCL 20 MEQ/1,000 ML BAG IV SCH (21:41)
[2021-03-13] MEDS: EZETIMIBE 10 MG TABLET PO SCH (21:41)
[2021-03-13] MEDS: INSULIN ASPART 100 UNITS/ML 3 ML PEN SC SCH (21:48)
[2021-03-13] MEDS: INSULIN GLARGINE SOLOSTAR 100 UNITS/ML 3 ML PEN SC SCH (21:49)
[2021-03-13 22:02] LABS: Partial Thromboplastin Ratio 1.1; Partial Thromboplastin Time 29.6 Seconds (21.0-31.0)
[2021-03-13 23:25] LABS: BUN Creatinine Ratio 12.3 (10-20); Calcium 8.5 mg/dl (8.5-10.1); Creatinine Clr Calc Pharmacy 120.1 ml/min; Est GFR (African American) 110.2 ml/min; Est GFR (Non-African American) 95.1 ml/min; Potassium 3.7 mmol/L (3.5-5.1)
[2021-03-13] MEDS ORDERED: PNEUMOCOCCAL POLYSACCHARIDES 25 MCG/0.5 ML VIAL/SYR IM ONE (23:45)
[2021-03-13] MEDS ORDERED: INFLUENZA VACCINE HIGH DOSE PF 65+ 0.7 ML SYR IM ONE (23:45)
[2021-03-13] MEDS: HYDROCORTISONE SOD 25 MG in SYRINGE 0 ML IV SCH (23:53)
[2021-03-13] MEDS: cefTRIAXone SODIUM 2,000 MG in DEXTROSE 5% 50 ML IV SCH (23:53)
[2021-03-14] MEDS ORDERED: GLUCOSE 10 TABS/TUBE PO PRN (02:30)
[2021-03-14] MEDS ORDERED: GLUCAGON FOR INJ 1 MG VIAL IM PRN (02:30)
[2021-03-14] MEDS ORDERED: DEXTROSE 50% 50 ML SYRINGE IV PRN (02:30)
[2021-03-14] MEDS ORDERED: CARBOHYDRATES FOR HYPOGLYCEMIA PO PRN (02:30)
[2021-03-14] MEDS ORDERED: GLUCOSE 40% GEL 15 GM TUBE PO PRN (02:30)
[2021-03-14] MEDS: DOXYCYCLINE HYCLATE 100 MG in DEXTROSE 5% 100 ML IV SCH ×2 (05:38→17:53)
[2021-03-14 07:08] LABS: Hematocrit (blood only) 34.6 % (42-52); Hemoglobin 11.5 g/dL (14.0-18.0); Mean Corpuscular Hemoglobin 30.6 pg (25-34); Mean Corpuscular Hgb Conc 33.2 g/dL (32-36); Nucleated RBC # (auto) 0.08 K/uL (0-0); Nucleated RBC % (auto) 2.9 %; RDW Coefficient of Variation 13.3 % (11.5-14.5); RDW Standard Deviation 44.7 fL (36.4-46.3); Red Blood Count 3.76 M/uL (4.7-6.1); White Blood Count 2.63 K/uL (4.8-10.8)
[2021-03-14 07:55] LABS: Albumin Level 2.4 gm/dl (3.4-5.0); BUN Creatinine Ratio 13.9 (10-20); Calcium 8.5 mg/dl (8.5-10.1); Creatinine Clr Calc Pharmacy 149.6 ml/min; Est GFR (African American) 119.8 ml/min; Est GFR (Non-African American) 103.4 ml/min; Potassium 3.9 mmol/L (3.5-5.1)
[2021-03-14] MEDS: NSS + 20MEQ KCL 20 MEQ/1,000 ML BAG IV SCH (08:31)
[2021-03-14] MEDS: METOPROLOL SUCC 50MG EXT REL TAB PO SCH ×2 (08:33→20:26)
[2021-03-14] MEDS: ADVANCED PROBIOTIC 1250 MG CAPSULE PO SCH (08:33)
[2021-03-14] MEDS: PANTOprazole 40 MG TAB PO SCH (08:33)
[2021-03-14] MEDS: ASPIRIN 81 MG ECTAB PO SCH (08:33)
[2021-03-14 08:34] LABS: Albumin Globulin Ratio 0.6 (0.9-2); Bilirubin,Total 0.8 mg/dl (0.2-1); Total Protein 6.4 gm/dl (6.4-8.2)
[2021-03-14] MEDS: HYDROCORTISONE SOD 25 MG in SYRINGE 0 ML IV SCH ×3 (08:34→22:37)
[2021-03-14] MEDS: HEPARIN SOD 5,000 UNIT/0.5 ML VIAL SQ SCH ×2 (08:36→15:20)
[2021-03-14] MEDS: INSULIN ASPART 100 UNITS/ML 3 ML PEN SC SCH ×4 (08:41→20:30)
[2021-03-14] MEDS: INSULIN GLARGINE SOLOSTAR 100 UNITS/ML 3 ML PEN SC SCH (08:43)
[2021-03-14] MEDS: cefTRIAXone SODIUM 2,000 MG in DEXTROSE 5% 50 ML IV SCH (08:55)
[2021-03-14 09:13] LABS: Mean Platelet Volume 9.8 fL (7.4-10.4); Platelet Count 86 K/uL (130-400)
[2021-03-14 09:14] LABS: Basophils # (auto) 0.02 K/uL (0-0.2); Basophils % (auto) 0.8 %; Echinocytes 1+; Immature Granulocytes # (auto) 0.01 K/uL (0.00-0.02); Immature Granulocytes % (auto) 0.4 %; Lymphocytes # (auto) 0.36 K/uL (1.2-3.4); Lymphocytes % (auto) 13.7 %; Monocytes # (auto) 0.18 K/uL (0.11-0.59); Monocytes % (auto) 6.8 %; Neutrophils # (auto) 2.06 K/uL (1.4-6.5); Neutrophils % (auto) 78.3 %; Platelet Estimate Decreased (Normal)
[2021-03-14 10:17] LABS: Estimated Average Glucose 217 mg/dl; Hemoglobin A1C 9.2 % (4.5-5.6)
--- NOTE | 2021-03-14 17:10 | Hospitalist Progress Note ---
Date of Service March 14, 2021 Assessment & Plan (1) Sepsis: Plan: Sepsis demonstrated by tachycardia and fever in setting of suspected infectious source being tick-borne illness. Lyme IgG and IgM negative although this does not rule out early Lyme. Anaplasmosis screen negative; babesiosis screen negative. Given the recent tick bite (~1 week ago) his clinical picture may be due to anaplasmosis. Anaplasmosis DNA test ordered and is pending. Doxycycline 100mg BID initiated and will be continued. Blood cultures x 2 ordered and are pending. Empiric Rocephin -- however, doubt that this is providing any added benefit. Continue stress dose steroids -- Hydrocortisone 25mg IV q8h x 48 hours then will adjust to BID and continue taper. IVF on board -- continue for now. (2) Tick bite of abdominal wall: Plan: In light of #1 above he could have tick-borne illness; in particular, anaplasmosis would be top of differential. Plan as per above. (3) Hyponatremia: Plan: Likely due to volume depletion in the setting of #1. Uptrending, continue IVF, repeat BMP in AM. (4) Thrombocytopenia: Plan: Likely secondary to #1. Dropped this AM from 128 down to 86. Follow cultures. Continue empiric doxycycline for tick-borne disease. Consider viral work-up. CBC in am. D/C Heparin. (5) Elevated AST (SGOT): Plan: Viral or tick-borne etiology most likely. Serial LFTs. (6) Diabetes mellitus type 2, uncontrolled: Plan: He does not check BSGs at home. Place on DM diet. His Tradjenta and Metformin were held. Started on Lantus 10 units BID. Will adjust evening dose of Lantus to 15units and adjust further if necessary. Continue novolog SSI for correction. Ha1c 9.2% Appreciate input from environmental educator. Will need to improve glycemic monitoring as an outpatient. May benefit from GLP-1 weekly which can be arranged by PCP. (7) CAD (coronary artery disease): Plan: No ischemic symptoms at this time. Cont metoprolol, aspirin. Cont zetia. (8) Morbid obesity with BMI of 40.0-44.9, adult: Plan: BMI 40.5 (9) Hypertension: Plan: Hold lisinopril Cont Metoprolol, may need to adjust dose. BP marginal with systolics throughout today in the 100s. Will continue to monitor. (10) Prostate cancer: Plan: On chronic Zytiga, Leuprolide q6 months, and prednisone 5mg BID. Given the chronic prednisone he will need stress dose steroids while here. Zytiga held for now. (11) Tachycardia: Plan: 2nd to #1. 2nd to dehydration. Improving. Continue telemetry and BB therapy. EKG with sinus tach. (12) DVT prophylaxis: Plan: Heparin d/c'd due to worsening thrombocytopenia. Ambulate. Plan: Anticipate as long as pt remains afebrile, will be able to transition to oral Doxycycline and discharge with outpatient follow up. Admission and Anticipated Discharge Date Admission Date: March 13, 2021 Subjective Mr. Myers was seen on rounds this morning. He was hospitalized with generalized feels of fatigue, fever, and myalgias, dx'd with sepsis with suspected source of infection being tick-borne illness. Pt with known tick bite ~1 week ago to his abdomen. This morning, pt reports feeling improved. He denies myalgias/arthralgias today. Denies chest pain, shortness of breath, cough, abdominal pain, symptoms, fever, chills, sweats, n/v/d. Empirically started on Rocephin for ?UTI as well as Doxycycline for possible anaplasmosis. No issues communicated by nursing staff. Review of Systems Review of Systems: All systems reviewed & are unremarkable except as noted in HPI & below Constitutional: + fatigue; no fever, no chills and no body aches Integumentary: as per Subjective / HPI (tick bite on abdomen) Physical Exam Constitutional: WD/WN, vitals as above Respiratory: normal respiratory effort, lungs clear to auscultation Cardiovascular: RRR, no murmur, no edema Gastrointestinal (Abdomen): normal bowel sounds, soft, nontender, no hepatosplenomegaly obese. small punctate erythematous lesion on abdominal wall just slightly to the left of the umbilicus. Umbilical hernia noted. Musculoskeletal: no cyanosis or clubbing, extremities motor strength 5/5 Skin: no rashes, warm and dry (see abd exam) Psychiatric: A+Ox3, euthymic affect Results & Data Results & Data ([facility]) Vital Signs (Past 12 Hours) Vital Signs Temp Pulse Pulse Resp BP Pulse Ox 03/14/21 14:40 36.7 C 101 H 20 102/67 96 03/14/21 11:44 36.6 C 101 H 14 108/63 94 03/14/21 08:00 90 03/14/21 07:08 36.7 C 92 H 20 108/69 94 03/14/21 05:27 36.5 C 92 H 18 101/63 94 Laboratory Results Laboratory Results - last 24 hr 03/13/21 03/13/21 03/13/21 11:08 11:08 21:35 WBC RBC Hgb Hct MCV MCH MCHC RDW Std Deviation RDW Coeff of Cisco Plt Count MPV Immature Gran % (Auto) Neut % (Auto) Lymph % (Auto) [place] % (Auto) Eos % (Auto) Baso % (Auto) Neut # (Auto) Lymph # (Auto) [place] # (Auto) Eos # (Auto) Baso # (Auto) Immature Gran # (Auto) Absolute Nucleated RBC Nucleated RBC % (auto) Platelet Estimate Echinocytes APTT 29.6 PTT Ratio 1.1 Sodium Potassium Chloride Carbon Dioxide Anion Gap BUN Creatinine Est Cr Clr Drug Dosing Est GFR ( Amer) Est GFR (Non-Af Amer) BUN/Creatinine Ratio Glucose POC Glucose Estimat Average Glucose Hemoglobin A1c Calcium Total Bilirubin AST ALT Alkaline Phosphatase Total Protein Albumin Globulin Albumin/Globulin Ratio Influenza Type A Ag Neg for Influ A Influ A Molecular Assay Cancelled Influenza Type B Ag Neg for Influ B Influ B Molecular Assay Cancelled 03/13/21 03/13/21 03/14/21 21:45 22:48 06:40 WBC 2.63 L RBC 3.76 L Hgb 11.5 L Hct 34.6 L MCV 92.0 MCH 30.6 MCHC 33.2 RDW Std Deviation 44.7 RDW Coeff of Cisco 13.3 Plt Count 86 L MPV 9.8 Immature Gran % (Auto) 0.4 Neut % (Auto) 78.3 Lymph % (Auto) 13.7 [place] % (Auto) 6.8 Eos % (Auto) 0.0 Baso % (Auto) 0.8 Neut # (Auto) 2.06 Lymph # (Auto) 0.36 L [place] # (Auto) 0.18 Eos # (Auto) 0.00 Baso # (Auto) 0.02 Immature Gran # (Auto) 0.01 Absolute Nucleated RBC 0.08 H Nucleated RBC % (auto) 2.9 Platelet Estimate Decreased L Echinocytes 1+ APTT PTT Ratio Sodium 129 L Potassium 3.7 Chloride 100 Carbon Dioxide 21 Anion Gap 8.0 BUN 9 Creatinine 0.76 Est Cr Clr Drug Dosing 120.1 Est GFR ( Amer) 110.2 Est GFR (Non-Af Amer) 95.1 BUN/Creatinine Ratio 12.3 Glucose 240 H POC Glucose 228 H Estimat Average Glucose Hemoglobin A1c Calcium 8.5 Total Bilirubin AST ALT Alkaline Phosphatase Total Protein Albumin Globulin Albumin/Globulin Ratio Influenza Type A Ag Influ A Molecular Assay Influenza Type B Ag Influ B Molecular Assay 03/14/21 03/14/21 03/14/21 06:40 06:40 07:17 WBC RBC Hgb Hct MCV MCH MCHC RDW Std Deviation RDW Coeff of [employer] Plt Count MPV Immature Gran % (Auto) Neut % (Auto) Lymph % (Auto) [place] % (Auto) Eos % (Auto) Baso % (Auto) Neut # (Auto) Lymph # (Auto) [place] # (Auto) Eos # (Auto) Baso # (Auto) Immature Gran # (Auto) Absolute Nucleated RBC Nucleated RBC % (auto) Platelet Estimate Echinocytes APTT PTT Ratio Sodium 131 L Potassium 3.9 Chloride 101 Carbon Dioxide 21 Anion Gap 9.0 BUN 9 Creatinine 0.62 Est Cr Clr Drug Dosing 149.6 Est GFR ( Amer) 119.8 Est GFR (Non-Af Amer) 103.4 BUN/Creatinine Ratio 13.9 Glucose 268 H POC Glucose 231 H Estimat Average Glucose 217 Hemoglobin A1c 9.2 H Calcium 8.5 Total Bilirubin 0.8 D AST 94 H ALT 65 Alkaline Phosphatase 76 Total Protein 6.4 Albumin 2.4 L Globulin 4.0 Albumin/Globulin Ratio 0.6 L Influenza Type A Ag Influ A Molecular Assay Influenza Type B Ag Influ B Molecular Assay 03/14/21 03/14/21 11:07 15:38 WBC RBC Hgb Hct MCV MCH MCHC RDW Std Deviation RDW Coeff of [employer] Plt Count MPV Immature Gran % (Auto) Neut % (Auto) Lymph % (Auto) [place] % (Auto) Eos % (Auto) Baso % (Auto) Neut # (Auto) Lymph # (Auto) [place] # (Auto) Eos # (Auto) Baso # (Auto) Immature Gran # (Auto) Absolute Nucleated RBC Nucleated RBC % (auto) Platelet Estimate Echinocytes APTT PTT Ratio Sodium Potassium Chloride Carbon Dioxide Anion Gap BUN Creatinine Est Cr Clr Drug Dosing Est GFR ( Amer) Est GFR (Non-Af Amer) BUN/Creatinine Ratio Glucose POC Glucose 226 H 184 H Estimat Average Glucose Hemoglobin A1c Calcium Total Bilirubin AST ALT Alkaline Phosphatase Total Protein Albumin Globulin Albumin/Globulin Ratio Influenza Type A Ag Influ A Molecular Assay Influenza Type B Ag Influ B Molecular Assay Medications Administered Current Medications Acetaminophen (Acetaminophen 325 Mg Tab) 650 mg PO Q4H PRN PRN Reason: Pain or Fever Stop: 04/12/21 20:01 Albuterol (Albuterol Hfa Inhaler 8.5 Gm) 2 puffs INH Q4 PRN PRN Reason: Shortness Of Breath Or Wheezing Stop: 04/12/21 20:33 Aspirin (Aspirin 81 Mg Ectab) 81 mg PO DAILY [facility] Stop: 04/13/21 08:59 Last Admin: 03/14/21 08:33 Dose: 81 mg Documented by: Ezetimibe (Ezetimibe 10 Mg Tablet) 10 mg PO HS MELNAIE Stop: 04/12/21 20:59 Last Admin: 03/13/21 21:41 Dose: 10 mg Doxycycline Hyclate 100 mg/ (Dextrose) 110 mls @ 50 mls/hr IV Q12H MELANIE Stop: 03/28/21 04:59 Last Infusion: 03/14/21 07:00 Dose: 0 mls/hr Ceftriaxone Sodium 2,000 mg/ (Dextrose) 70 mls @ 100 mls/hr IV DAILY MELANIE; Protocol Stop: 03/15/21 21:59 Last Infusion: 03/14/21 09:37 Dose: Infused Hydrocortisone Sodium (Succinate 25 mg/ Syringe) 0.5 mls @ 4 mls/min IV Q8H MELANIE Stop: 04/13/21 00:00 Last Admin: 03/14/21 16:00 Dose: 4 mls/min Insulin Aspart (Insulin Aspart 100 Units/Ml 3 Ml Pen) 0 units SC ACHS MELANIE Stop: 04/12/21 20:59 Last Admin: 03/14/21 11:44 Dose: 8 units Documented by: Insulin Glargine (Insulin Glargine Solostar 100 Units/Ml 3 Ml Pen) 10 units SC BID MELANIE Stop: 04/12/21 20:59 Last Admin: 03/14/21 08:43 Dose: 10 units Documented by: Lactobacillus Acidoph/Casei/Rhamnos (Advanced Probiotic 1250 Mg Capsule) 2 cap PO DAILY MELANIE Stop: 04/13/21 08:59 Last Admin: 03/14/21 08:33 Dose: 2 cap Metoprolol Succinate (Metoprolol Succ 50mg Ext Rel Tab) 50 mg PO BID MELANIE Stop: 04/12/21 20:59 Last Admin: 03/14/21 08:33 Dose: 50 mg Miscellaneous (Carbohydrates For Hypoglycemia ) 15 - 30 gm PO UD PRN PRN Reason: Hypoglycemia Treatment Stop: 04/13/21 02:29 Nitroglycerin (Nitroglycerin Sl 0.4 Mg/Tab Tab) 0.4 mg SL UD PRN PRN Reason: Chest Pain Stop: 04/12/21 20:01 Ondansetron HCl (Ondansetron Inj 2 Mg/Ml 2 Ml Vial) 4 mg IV Q6H PRN PRN Reason: Nausea Stop: 04/12/21 20:01 Pantoprazole Sodium (Pantoprazole 40 Mg Tab) 40 mg PO QAM MELANIE Stop: 04/13/21 08:59 Last Admin: 03/14/21 08:33 Dose: 40 mg PG Care Time/CCT Total # of Minutes Spent Total Time Spent with Patient: Total time spent is greater than 50% in coordination of care (as documented) at patient's floor/unit and/or counseling patient: C[place] [address] Subseq Hosp Care Lvl 2 Patient Type Established History Expanded Problem Focused Exam Expanded Problem Focused Medical Decision Making Moderate Complexity Diagnoses Sepsis A41.9 Tick bite of abdominal wall S30.861A; W57.XXXA Hyponatremia E87.1 Thrombocytopenia D69.6 Elevated AST (SGOT) R74.01 Diabetes mellitus type 2, uncontrolled E11.65 CAD (coronary artery disease) I25.10 Morbid obesity with BMI of 40.0-44.9, adult E66.01; Z68.41 Hypertension I10 Prostate cancer C61 Tachycardia R00.0 DVT prophylaxis Z29.9
[2021-03-14] MEDS: EZETIMIBE 10 MG TABLET PO SCH (20:26)
[2021-03-14] MEDS ORDERED: INSULIN GLARGINE SOLOSTAR 100 UNITS/ML 3 ML PEN SC SCH (21:00)
[2021-03-15] MEDS: DOXYCYCLINE HYCLATE 100 MG in DEXTROSE 5% 100 ML IV SCH (05:41)
[2021-03-15 06:57] LABS: Albumin Level 2.5 gm/dl (3.4-5.0); BUN Creatinine Ratio 15.7 (10-20); Calcium 8.8 mg/dl (8.5-10.1); Creatinine Clr Calc Pharmacy 134.7 ml/min; Est GFR (African American) 114.7 ml/min; Est GFR (Non-African American) 98.9 ml/min; Potassium 4.3 mmol/L (3.5-5.1)
[2021-03-15 06:59] LABS: Albumin Globulin Ratio 0.6 (0.9-2); Bilirubin,Total 0.8 mg/dl (0.2-1); Globulin 4.1 gm/dl (2.5-4.0); Total Protein 6.6 gm/dl (6.4-8.2)
[2021-03-15] MEDS: INSULIN ASPART 100 UNITS/ML 3 ML PEN SC SCH ×2 (08:21→11:59)
[2021-03-15] MEDS: PANTOprazole 40 MG TAB PO SCH (08:25)
[2021-03-15] MEDS: ASPIRIN 81 MG ECTAB PO SCH (08:25)
[2021-03-15] MEDS: METOPROLOL SUCC 50MG EXT REL TAB PO SCH (08:26)
[2021-03-15] MEDS: ADVANCED PROBIOTIC 1250 MG CAPSULE PO SCH (08:26)
[2021-03-15] MEDS: cefTRIAXone SODIUM 2,000 MG in DEXTROSE 5% 50 ML IV SCH (08:27)
[2021-03-15] MEDS ORDERED: INSULIN GLARGINE SOLOSTAR 100 UNITS/ML 3 ML PEN SC SCH (09:00)
[2021-03-15] MEDS ORDERED: PHARMACY GLYCEMIC MGMT CONSULT PRN (11:30)
[2021-03-15] MEDS ORDERED: INSULIN GLARGINE SOLOSTAR 100 UNITS/ML 3 ML PEN SC ONE (13:15)
--- NOTE | 2021-03-15 16:46 | Discharge Summary ---
Date of Service March 15, 2021 Admission HPI Per Admitting Provider 65yo male with h/o CAD, T2DM, and HTN presented to ED with subjective fever, chills, severe fatigue, anorexia, and myalgias starting Saturday pm. He has slept most of the time since falling ill on Saturday. He has had b/l ear drainage, mainly right-sided, but this is chronic. Denies ear pain. Denies nasal congestion or sore throat. Has had slight cough but feels that this is chronic and typically worse in the fall/early winter. No nausea/emesis/diarrhea/abd pain. No dysuria. No rashes. Denies any travel out of the state but he was at his hunting camp 03/01 through 03/05. The camp is in [facility]. He was bitten by a tick and found it near his umbilicus. pulled the tick off his skin the day he arrived home from camp. Has had minimal erythema near the tick bite site. The tick may have been imbedde d for 24+ hours. Patient has been vaccinated against COVID-19 and his COVID test on day of admit was negative. Rapid flu also negative. Despite his illness he has had no sick contacts and is not ill. Upon eval in ED, pt was noted to be febrile and tachycardic. No elevated wbc count. Pt was empirically started on IV abx and admitted for further care. Admission Exam Per Admitting Provider gen - obese, NAD, nontoxic, hearing impaired eyes - PERRL HENT - right TM with perforation; no drainage in canal; left TM normal landmarks, no drainage in canal; nose clear; mouth - MM dry Neck - supple, no lymphadenopathy, no thyroidmegaly Heart- Tachy, s1, s2, no murmur Lungs - CTA b/l, no rales, no increased work of breathing Abd - soft, NT, ND, BS+, no HSM; minimal umbilical hernia present Ext - no edema, pulses 2+ b/l skin - no generalized rash; tick bite site right of umbilicus with minimal erythema; scar over L knee; old scar right ness; feet w/o ulcers Musculo - no joint effusions neuro - strength 5/5 x 4 exts; DTRs 2+ b/l Psych - a/o x 3 lymph - no cervical lymphadenopathy Principal Diagnosis 1. Sepsis syndrome (resolved) secondary to suspected tick-borne illness 2. Uncontrolled T2DM with hyperglycemia 3. Chronic immunosuppression (medication induced) Discharge Exam Vital Signs Temp Pulse Pulse Resp BP Pulse Ox 03/15/21 15:34 36.7 C 90 18 108/65 95 03/15/21 15:10 36.3 C L 86 18 101/61 98 03/15/21 11:13 36.3 C L 86 18 101/61 98 03/15/21 08:00 36.4 C L 83 20 99/58 L 97 03/15/21 03:16 36.6 C 85 18 106/69 93 03/14/21 22:35 36.7 C 18 102/66 96 03/14/21 19:12 36.8 C 97 H 18 101/66 95 Patient Weight 03/16/21 06:59 Weight 123.4 kg Constitutional + obese and cooperative Vitals as above Respiratory normal respiratory effort, lungs clear to auscultation Cardiovascular RRR, no murmur, no edema Gastrointestinal (Abdomen) normal bowel sounds, soft, nontender, no hepatosplenomegaly Musculoskeletal no cyanosis or clubbing, extremities motor strength 5/5 Skin small (pea-sized) erythematous lesion to right of umbilicus (site of tick bite). No warmth, nontender. No active bleeding or drainage. No rash. Remaining skin warm, dry, intact. Psychiatric A+Ox3, euthymic affect Discharge Data Allergies Allergy/AdvReac Type Severity Reaction Status Date / Time No Known Allergies Allergy Verified 03/13/21 11:28 Consultations None Procedures Performed None Ordered Studies Laboratory Results - last 24 hr 03/14/21 03/15/21 03/15/21 20:15 06:00 07:12 Sodium 131 L Potassium 4.3 Chloride 100 Carbon Dioxide 25 Anion Gap 6.0 BUN 11 Creatinine 0.69 Est Cr Clr Drug Dosing 134.7 Est GFR ( Amer) 114.7 Est GFR (Non-Af Amer) 98.9 BUN/Creatinine Ratio 15.7 Glucose 244 H POC Glucose 224 H 222 H Calcium 8.8 Total Bilirubin 0.8 AST 67 H ALT 63 Alkaline Phosphatase 81 Total Protein 6.6 Albumin 2.5 L Globulin 4.1 H Albumin/Globulin Ratio 0.6 L 03/15/21 10:54 Sodium Potassium Chloride Carbon Dioxide Anion Gap BUN Creatinine Est Cr Clr Drug Dosing Est GFR ( Amer) Est GFR (Non-Af Amer) BUN/Creatinine Ratio Glucose POC Glucose 311 H* Calcium Total Bilirubin AST ALT Alkaline Phosphatase Total Protein Albumin Globulin Albumin/Globulin Ratio A. phagocytophilum DNA is pending Babesia microti DNA PCR is pending Diabetes Follow up Diabetes Follow-up Needed for HgbA1c >9% Hospital Course (1) Sepsis: Sepsis demonstrated by tachycardia and fever in setting of suspected infectious source being tick-borne illness. Lyme IgG and IgM came back negative although this does not rule out early Lyme. Anaplasmosis screen negative; babesiosis screen negative. Given the recent tick bite (~1 week ago) his clinical picture may be due to anaplasmosis. Anaplasmosis DNA test ordered and is pending. Doxycycline 100mg BID initiated and will be continued. Blood cultures x 2 ordered and were negative. Empiric Rocephin ordered for ?UA on admission but was discontinued after 48 hours. UA not suggestive of UTI. Pt on chronic Prednisone therapy concurrently with Zytiga and Leuprolide for prostate CA. Stress dose steroids ordered and administered. Will transition to oral Predisone and continue tapering course back down to his usual dose. (2) Tick bite of abdominal wall: In light of #1 above he could have tick-borne illness; in particular, anaplasmosis would be top of differential. Plan as per above. (3) Hyponatremia: Likely due to volume depletion in the setting of #1 -- Na+ 131 (stable). (4) Thrombocytopenia: Likely secondary to #1. Continue empiric doxycycline for tick-borne disease. (5) Elevated AST (SGOT): Viral or tick-borne etiology most likely. AST downtrending. (6) Diabetes mellitus type 2, uncontrolled: His Tradjenta and Metformin were held on admission. Started on Lantus 10 units BID. Evening dose of Lantus adjusted to 15 units last PM and kept on Lantus 10 units in AM. Novolog on board for SSI for correction. Pt had BS late this AM of 311. Pharmacy consulted for glycemic management. Appreciate her assistance. Pt was medicated wtih another 20 units of Lantus with plans to keep him on AM dosing of Lantus once daily concurrently with his oral Prednisone. Will plan to send him home on Lantus 30 units in AM for BG<200 and Lantus 40 units for BG>200 - pt to check FBS before administering his Lantus. Will resume his Metformin. His a1c was 9.2%. Was seen by the process project engineer, appreciate her input. Rx sent for pen needles as well as test strips and lancets. Pt may benefit from GLP-1 weekly but will defer to PCP to further adjust his diabetic regimen. Advise glucose monitoring as process project engineer instructed. (7) CAD (coronary artery disease): No ischemic symptoms at this time. Patient was continued on his metoprolol, aspirin, and zetia. (8) Morbid obesity with BMI of 40.0-44.9, adult: BMI 40.5 (9) Hypertension: Lisinopril held (BP marginal) but was continued on his Metoprolol Succinate. Will discontinue Lisinopril upon discharge and only continue the Toprol. (10) Prostate cancer: On chronic Zytiga, Leuprolide q6 months, and prednisone 5mg BID. Given the chronic prednisone, he received stess dose steroids and will be transitioned to oral steroid taper to continue as outpatient. Zytiga held during hospitalization, can be resumed upon d/c. (11) Tachycardia: Driven by sepsis syndrome and mild dehydration - resolved with IVF and initiation of abx. Patient felt to be medically and hemodynamically stable for discharge home today on 14 day course of Doxycycline as instructed and tapering course of Prednisone. Further medication adjustments as outlined on med reconciliation. Follow up with PCP within 1 week of discharge. Total Time Total Time Spent Total Time Spent (In Minutes): 45 minutes Discharge Plan Discharge Items Patient Disposition: Home - Self-Care Reason For Visit: SEPSIS Discharge Diagnosis: 1. Sepsis Syndrome (resolved) secondary to suspected tick-borne illness 2. Uncontrolled T2DM Condition on Discharge: Good Activity: Resume your previous activity Non-emergency contact: Primary Care Provider Call non-emergency contact if: you have any medication questions and your tem perature is above 101 Follow-up/Referrals: Joanna Angeles MD [Primary Care Provider] - Samantha Rivas CRNP [Outside Practitioners] - 03/24/21 10:10 am (Please follow up with DESHAUN Magana on Saturday03/24/21 at 10:10 am. Please arrive to the office at 9:55 am for your appointment. If you are unable to keep this appointment, please call the office to reschedule at [phone].) Diet: Carb Consistent or DM2 Addtl Attending Provider Instructions: 1. Take all medications as directed on your discharge instructions. 2. Complete course of Doxycycline 100mg twice daily as directed. Do not consume with milk products or calcium. Take at least 1 hour prior to laying down. 3. Use insulin as directed. Use glucometer provided to check blood sugars as advised by process project engineer. 4. Taper steroids as directed. Will need a dose this evening with supper. 5. Take glucometer with you to your scheduled follow up with your PCP. 6. Follow up with PCP within 1 week of discharge (as scheduled). Pending Studies at Discharge: Yes Studies:: Anaplasmosis DNA test Babesiosis DNA testing Stand-Alone Forms: [facility] Vital Vio, Smoking Cessation Medications and DC Order Prescriptions: New Lantus Solostar U-100 Insulin 100 unit/mL (3 mL) insulin pen 30 unit subcut QAM Qty: 3 RF: 1 doxycycline hyclate 100 mg capsule 100 mg PO BID 14 Days Qty: 28 RF: 0 prednisone 10 mg tablet 10 mg PO DAILY Qty: 20 RF: 0 (DME) pen needle, diabetic [Pen Needle] 29 gauge x 1/2" needle See Rx Instructions .Route Qty: 100 RF: 0 (DME) lancets [OneTouch Delica Lancets] 33 gauge misc See Rx Instructions .Route Qty: 100 RF: 0 (DME) OneTouch Verio test strips Strip See Rx Instructions .Route Qty: 100 RF: 0 Continued Lupron [place] (6 Month) 45 mg syringe kit 45 mg IM .[id number] Qty: 1 RF: 0 metoprolol succinate 50 mg Tablet Extended Release 24 Hr 50 mg PO BID RF: 0 albuterol sulfate [ProAir HFA] 90 mcg/actuation Hfa Aerosol Inhaler 1 - 2 puff INHALATION Q4 PRN (Reason: Shortness Of Breath Or Wheezing) RF: 0 ezetimibe [Zetia] 10 mg Tablet 10 mg PO HS RF: 0 metformin 1,000 mg Tablet 1,000 mg PO BIDM RF: 0 abiraterone [Zytiga] 250 mg Tablet 250 mg PO BID RF: 0 aspirin 81 mg Tablet,Delayed Release (Dr/Ec) 81 mg PO DAILY RF: 0 prednisone 5 mg Tablet 5 mg PO BID Qty: 0 RF: 0 Discontinued lisinopril 10 mg Tablet 10 mg PO QAM RF: 0 Tradjenta 5 mg Tablet 5 mg PO QAM RF: 0 Discharge Orders: Discharge Order (Routine); Ordered 03/15/21 Ordered By: Denise Cardona/Other Patient Handouts: Tick Bites Admission Data Admit Date/Time: 03/13/21 16:46 Attending Provider: Scottie Pham Admit Provider: Juan Pablo Donaldson Primary Care Provider: Joanna Angeles Other Providers: Juan Pablo Donaldson Other Interventions: Discharge Summary Assessment (RN) Last Done: 03/15/21 15:10 Coding Level of Care Code D/C DAY MANAGEMENT >30 MINS Diagnoses Sepsis A41.9 Tick bite of abdominal wall S30.861A; W57.XXXA Hyponatremia E87.1 Thrombocytopenia D69.6 Elevated AST (SGOT) R74.01 Diabetes mellitus type 2, uncontrolled E11.65 CAD (coronary artery disease) I25.10 Morbid obesity with BMI of 40.0-44.9, adult E66.01; Z68.41 Hypertension I10 Prostate cancer C61 Tachycardia R00.0
[2021-03-15] MEDS ORDERED: HYDROCORTISONE SOD 25 MG in SYRINGE 0 ML IV SCH (20:00)
[2021-03-16] MEDS ORDERED: INSULIN ASPART 100 UNITS/ML 3 ML PEN SC SCH
[2021-03-17 07:04] LABS: Babesia microti DNA Not Detected (Not Detected)
--- NOTE | 2021-03-21 09:23 | Coding Query ---
CODING QUERY To promote full compliance with coding requirements relating to patient care, provider participation is requested in all cases of medical billing coder uncertainty. Please assist us with the question(s) below: Coding Question(s): Sepsis is documented throughout the record and on the Discharge Summary in the Principal Diagnosis area, there is documentation of, " Sepsis syndrome (resolved) secondary to suspected tick-borne illness", with documentation under the Hospital Course of, "Sepsis: Sepsis demonstrated by tachycardia and fever in setting of suspected infectious source being tick-borne illness. Lyme IgG and IgM came back negative although this does not rule out early Lyme. Anaplasmosis screen negative; babesiosis screen negative. Given the recent tick bite (~1 week ago) his clinical picture may be due to anaplasmosis". Please specify below, due to conflicting documentation. ( xx ) Sepsis ( ) Sepsis Syndrome, with NO Sepsis ( ) Other: Please Specify Physician's Response(s): Thank you Adrienne El Principal Diagnosis: "that condition established after study, to be chiefly responsible for occasioning the admission of the patient to the hospital for care." Co-Existing Principal Diagnosis: "when two or more diagnoses equally meet the criteria for principal diagnosis as determined by the circumstances of admission, diagnostic work up, and/or therapy provided, and the Alphabetic Index, Tabular List, or another coding guideline does not provide sequencing direction, any one of the diagnoses may be sequenced first." "When the physician has documented what appears to be a current diagnosis in the body of the record, but has not included the diagnosis in the final diagnostic statement, the physician should be asked whether the diagnosis should be added." (Source [facility] 2 QTR90. p3-4) MADHURID
== END 2021-03-15 16:26 | disposition home or self-care (01) | DRG 872 ==
LOC: ED 10:48 → SUATTDRO 16:46 → EDINP 16:46 → 2S 22:11